=== PATIENT | female | born 1945 | race Hispanic/Latino ===

== ENCOUNTER 2017-04-28 14:44 | Inpatient (IN) | payer MEDICARE ==
[~2017-04-28] VITALS: Ht 160 cm; Wt 68.9 kg
[~2017-04-28 14:44] MED LIST: AUD IH; DICL2100G TP; FAMO-136 PO; IPRA3AMP4 IH; LACT10SO PO; LISI40TA4 PO; MELO-108 PO; PROAIR HFA PUFF
[2017-04-28] MEDS ORDERED: LEVOFLOXACIN 500 MG/D5W 100 ML 100 ML ONE (15:28)
[2017-04-28] MEDS ORDERED: METHYLPREDNISOLONE SOD SUCC 125MG/2ML VIAL ONE (15:28)
[2017-04-28 15:39] LABS: BASOPHILS % (AUTO) 1.4 % (0.0-5.0); HEMATOCRIT 38.1 % (36-48); LYMPHOCYTES % (AUTO) 34.7 % (21.0-51.0); MEAN CORPUSCULAR HEMOGLOBIN 31.9 pg (27.0-33.0); MEAN CORPUSCULAR HGB CONC 33.7 g/dL (32.0-36.0); MEAN CORPUSCULAR VOLUME 94.7 fL (79-99); MONOCYTES % (AUTO) 7.3 % (3.0-13.0); NEUTROPHILS % (AUTO) 45.6 % (40.0-77.0); PLATELET COUNT (AUTO) 227 K/uL (130-400); RED BLOOD CELL COUNT(AUTO) 4.03 MIL/uL (4.00-5.50); WHITE BLOOD COUNT (AUTO) 6.7 K/uL (4.8-10.8)
[2017-04-28 15:46] LABS: CREATININE 0.6 mg/dL (0.5-1.5); POTASSIUM 3.4 mmol/L (3.5-5.1)
[2017-04-28 15:51] LABS: ALBUMIN 3.5 g/dL (3.5-5.0); BILIRUBIN,TOTAL 0.7 mg/dL (0.2-1.0); TOTAL PROTEIN, SERUM 6.9 g/dL (6.0-8.3)
[2017-04-28] MEDS ORDERED: IPRATROPIUM/ALBUTEROL SULFATE 3 ML SOLUTION IH ONE (16:16)
[2017-04-28 22:40] VITALS: BP 159/55
[2017-04-29] MEDS ORDERED: ACETAMINOPHEN 325 MG TAB ONE (00:31)
[2017-04-29] MEDS ORDERED: DIPHENHYDRAMINE HCL 25 MG CAPSULE PO PRN (01:15)
[2017-04-29] MEDS ORDERED: ONDANSETRON HCL 4 MG/2 ML VIAL IVP PRN (01:15)
[2017-04-29] MEDS ORDERED: ZOLPIDEM TARTRATE 5 MG TAB PO PRN (01:15)
[2017-04-29] MEDS: LEVOFLOXACIN 500 MG/D5W 100 ML 100 ML IV SCH (01:15)
[2017-04-29] MEDS ORDERED: DiphenhydrAMINE HCL 50 MG/ML VIAL IV PRN (01:15)
[2017-04-29] MEDS ORDERED: IPRATROPIUM/ALBUTEROL SULFATE 3 ML SOLUTION IH ONE (01:25)
[2017-04-29] MEDS ORDERED: LACTULOSE 20 GM/30 ML UDCUP PO PRN ×2 (02:00→09:45)
[2017-04-29] MEDS: SODIUM CHLORIDE 0.9% 1000ML 1,000 ML IV SCH ×2 (02:00→09:34)
[2017-04-29] MEDS ORDERED: CLONIDINE HCL 0.1 MG TABLET PO PRN (02:00)
[2017-04-29] MEDS ORDERED: NITROGLYCERIN 0.4 MG SL TAB SL PRN (02:00)
[2017-04-29 03:40] VITALS: BP 139/86
[2017-04-29] MEDS: IPRATROPIUM/ALBUTEROL SULFATE 3 ML SOLUTION IH PRN ×3 (06:51→13:38)
[2017-04-29 07:00] VITALS: BP 155/88
[2017-04-29] MEDS ORDERED: FAMOTIDINE 20MG TAB 20 MG TAB PO SCH (09:00)
[2017-04-29] MEDS: METHYLPREDNISOLONE SOD SUCC 125MG/2ML VIAL IVP SCH (09:33)
[2017-04-29] MEDS: GUAIFENESIN-DM 200/20 MG 10 ML PO PRN ×2 (09:39→20:39)
[2017-04-29] MEDS: ACETAMINOPHEN 325 MG TAB PO PRN ×2 (09:39→20:38)
[2017-04-29] MEDS ORDERED: IPRATROPIUM/ALBUTEROL SULFATE 3 ML SOLUTION IH PRN (09:45)
[2017-04-29 11:00] VITALS: BP 135/73
[2017-04-29 15:00] VITALS: BP 149/86
[2017-04-29] MEDS: ALBUTEROL SULFATE 0.083% 2.5 MG/3 ML INH IH SCH (18:26)
[2017-04-29 19:10] VITALS: BP 153/78
[2017-04-29] MEDS ORDERED: MORPHINE SULFATE 4 MG/1ML SYG IV PRN (20:15)
[2017-04-29] MEDS: FAMOTIDINE 20MG TAB 20 MG TAB PO SCH (20:38)
[2017-04-29 23:14] VITALS: BP 128/72
[2017-04-30] MEDS: LEVOFLOXACIN 500 MG/D5W 100 ML 100 ML IV SCH (00:50)
[2017-04-30] MEDS: IPRATROPIUM/ALBUTEROL SULFATE 3 ML SOLUTION IH PRN ×3 (01:50→21:36)
[2017-04-30] MEDS: GUAIFENESIN-DM 200/20 MG 10 ML PO PRN (01:57)
[2017-04-30 03:20] VITALS: BP 139/78
[2017-04-30] MEDS: ALBUTEROL SULFATE 0.083% 2.5 MG/3 ML INH IH SCH ×2 (06:32→18:00)
[2017-04-30] MEDS: METHYLPREDNISOLONE SOD SUCC 125MG/2ML VIAL IVP SCH (07:46)
[2017-04-30] MEDS: FAMOTIDINE 20MG TAB 20 MG TAB PO SCH ×2 (07:46→22:05)
[2017-04-30] MEDS: MELOXICAM 7.5 MG TABLET PO SCH (07:47)
[2017-04-30] MEDS: LISINOPRIL 40 MG TABLET PO SCH (07:49)
[2017-04-30 08:11] VITALS: BP 144/71
[2017-04-30] MEDS: DICLOFENAC 1% TP SCH (09:00)
[2017-04-30 11:09] VITALS: BP 144/77
[2017-04-30 16:28] VITALS: BP 136/80
[2017-04-30 19:25] VITALS: BP 137/85
[2017-04-30] MEDS: ACETAMINOPHEN 325 MG TAB PO PRN (22:07)
[2017-04-30] MEDS: SODIUM CHLORIDE 0.9% 1000ML 1,000 ML IV SCH (22:37)
[2017-04-30 23:00] VITALS: BP 126/77
[2017-05-01] MEDS: LEVOFLOXACIN 500 MG/D5W 100 ML 100 ML IV SCH (01:44)
[2017-05-01 02:50] VITALS: BP 144/85
[2017-05-01] MEDS: MAG HYDROX/AL HYDROX/SIMETH ES 30 ML SUSP UDCUP PO PRN (04:20)
[2017-05-01] MEDS: IPRATROPIUM/ALBUTEROL SULFATE 3 ML SOLUTION IH PRN ×4 (05:45→22:19)
[2017-05-01] MEDS: ALBUTEROL SULFATE 0.083% 2.5 MG/3 ML INH IH SCH ×2 (06:00→18:29)
[2017-05-01 07:41] VITALS: BP 145/84
[2017-05-01] MEDS: DICLOFENAC 1% TP SCH (09:00)
[2017-05-01] MEDS: METHYLPREDNISOLONE SOD SUCC 125MG/2ML VIAL IVP SCH (09:11)
[2017-05-01] MEDS: MELOXICAM 7.5 MG TABLET PO SCH (09:12)
[2017-05-01] MEDS: FAMOTIDINE 20MG TAB 20 MG TAB PO SCH ×2 (09:12→20:54)
[2017-05-01] MEDS: LISINOPRIL 40 MG TABLET PO SCH (09:12)
[2017-05-01 11:16] VITALS: BP 145/92
[2017-05-01 15:57] VITALS: BP 134/84
[2017-05-01 19:00] VITALS: BP 149/77
[2017-05-01] MEDS: ACETAMINOPHEN 325 MG TAB PO PRN (20:54)
[2017-05-01 23:00] VITALS: BP 140/83
[2017-05-02] MEDS: LEVOFLOXACIN 500 MG/D5W 100 ML 100 ML IV SCH ×2 (00:17→23:04)
[2017-05-02] MEDS: GUAIFENESIN-DM 200/20 MG 10 ML PO PRN ×2 (00:17→20:27)
[2017-05-02] MEDS: IPRATROPIUM/ALBUTEROL SULFATE 3 ML SOLUTION IH PRN ×5 (02:10→21:23)
[2017-05-02 03:00] VITALS: BP 115/60
[2017-05-02 08:06] VITALS: BP 147/87
[2017-05-02] MEDS: METHYLPREDNISOLONE SOD SUCC 125MG/2ML VIAL IVP SCH (08:41)
[2017-05-02] MEDS: FAMOTIDINE 20MG TAB 20 MG TAB PO SCH ×2 (08:41→20:27)
[2017-05-02] MEDS: MELOXICAM 7.5 MG TABLET PO SCH (08:41)
[2017-05-02] MEDS: LISINOPRIL 40 MG TABLET PO SCH (08:42)
[2017-05-02] MEDS: DICLOFENAC 1% TP SCH (09:00)
[2017-05-02 11:34] VITALS: BP 165/83
[2017-05-02 16:08] VITALS: BP 133/85
[2017-05-02] MEDS: ALBUTEROL SULFATE 0.083% 2.5 MG/3 ML INH IH SCH (17:49)
[2017-05-02 19:00] VITALS: BP 132/76
[2017-05-02 23:00] VITALS: BP 133/74
[2017-05-02] MEDS: MAG HYDROX/AL HYDROX/SIMETH ES 30 ML SUSP UDCUP PO PRN (23:04)
[2017-05-03] MEDS: IPRATROPIUM/ALBUTEROL SULFATE 3 ML SOLUTION IH PRN ×2 (01:55→15:53)
[2017-05-03 03:00] VITALS: BP 127/74
[2017-05-03] MEDS: MAG HYDROX/AL HYDROX/SIMETH ES 30 ML SUSP UDCUP PO PRN (06:10)
[2017-05-03] MEDS: ACETAMINOPHEN 325 MG TAB PO PRN (06:11)
[2017-05-03] MEDS: ALBUTEROL SULFATE 0.083% 2.5 MG/3 ML INH IH SCH ×2 (06:29→17:28)
[2017-05-03 07:00] VITALS: BP 137/79
[2017-05-03] MEDS: DICLOFENAC 1% TP SCH (09:00)
[2017-05-03] MEDS: METHYLPREDNISOLONE SOD SUCC 125MG/2ML VIAL IVP SCH (09:01)
[2017-05-03] MEDS: MELOXICAM 7.5 MG TABLET PO SCH (09:01)
[2017-05-03] MEDS: FAMOTIDINE 20MG TAB 20 MG TAB PO SCH ×2 (09:01→19:52)
[2017-05-03] MEDS: LISINOPRIL 40 MG TABLET PO SCH (09:02)
[2017-05-03 11:00] VITALS: BP 150/76
[2017-05-03 15:36] VITALS: BP 156/94
[2017-05-03 19:00] VITALS: BP 146/85
[2017-05-03] MEDS: GUAIFENESIN-DM 200/20 MG 10 ML PO PRN ×2 (19:52→23:41)
[2017-05-03] MEDS: ALBUTEROL SULFATE 0.083% 2.5 MG/3 ML INH IH PRN (21:42)
[2017-05-03 23:00] VITALS: BP 128/65
[2017-05-03] MEDS: LEVOFLOXACIN 500 MG/D5W 100 ML 100 ML IV SCH (23:38)
[2017-05-04] MEDS: ALBUTEROL SULFATE 0.083% 2.5 MG/3 ML INH IH PRN (02:02)
[2017-05-04 03:00] VITALS: BP 145/83
[2017-05-04] MEDS: ALBUTEROL SULFATE 0.083% 2.5 MG/3 ML INH IH SCH ×2 (07:06→21:38)
[2017-05-04 08:00] VITALS: BP 169/93
[2017-05-04] MEDS: METHYLPREDNISOLONE SOD SUCC 125MG/2ML VIAL IVP SCH (08:58)
[2017-05-04] MEDS: GUAIFENESIN-DM 200/20 MG 10 ML PO PRN (08:59)
[2017-05-04] MEDS: MELOXICAM 7.5 MG TABLET PO SCH (08:59)
[2017-05-04] MEDS: LISINOPRIL 40 MG TABLET PO SCH (08:59)
[2017-05-04] MEDS: FAMOTIDINE 20MG TAB 20 MG TAB PO SCH ×2 (08:59→21:22)
[2017-05-04] MEDS: ACETAMINOPHEN 325 MG TAB PO PRN ×2 (08:59→15:44)
[2017-05-04] MEDS: MAG HYDROX/AL HYDROX/SIMETH ES 30 ML SUSP UDCUP PO PRN ×2 (08:59→21:26)
[2017-05-04] MEDS: DICLOFENAC 1% TP SCH (09:00)
[2017-05-04 12:13] VITALS: BP 125/81
[2017-05-04 16:00] VITALS: BP 148/77
[2017-05-04 19:56] VITALS: BP 133/86
[2017-05-04 23:35] VITALS: BP 144/76
[2017-05-05] MEDS: LEVOFLOXACIN 500 MG/D5W 100 ML 100 ML IV SCH (00:14)
[2017-05-05] MEDS: ACETAMINOPHEN 325 MG TAB PO PRN (04:01)
[2017-05-05] MEDS: MAG HYDROX/AL HYDROX/SIMETH ES 30 ML SUSP UDCUP PO PRN (04:11)
[2017-05-05 04:18] VITALS: BP 149/84
[2017-05-05] MEDS: ALBUTEROL SULFATE 0.083% 2.5 MG/3 ML INH IH SCH ×2 (07:05→18:00)
[2017-05-05 08:00] VITALS: BP 167/98
[2017-05-05] MEDS: LISINOPRIL 40 MG TABLET PO SCH (08:37)
[2017-05-05] MEDS: FAMOTIDINE 20MG TAB 20 MG TAB PO SCH ×2 (08:37→20:38)
[2017-05-05] MEDS: MELOXICAM 7.5 MG TABLET PO SCH (08:37)
[2017-05-05] MEDS: METHYLPREDNISOLONE SOD SUCC 125MG/2ML VIAL IVP SCH (08:37)
[2017-05-05] MEDS: DICLOFENAC 1% TP SCH (08:39)
[2017-05-05] MEDS: IPRATROPIUM/ALBUTEROL SULFATE 3 ML SOLUTION IH SCH ×4 (09:37→22:03)
[2017-05-05 11:40] VITALS: BP 167/85
[2017-05-05 15:53] VITALS: BP 152/79
[2017-05-05 19:00] VITALS: BP 130/78
[2017-05-05] MEDS: GUAIFENESIN-DM 200/20 MG 10 ML PO PRN (20:38)
[2017-05-05 23:00] VITALS: BP 132/75
[2017-05-06] MEDS: LEVOFLOXACIN 500 MG/D5W 100 ML 100 ML IV SCH (01:08)
[2017-05-06] MEDS: IPRATROPIUM/ALBUTEROL SULFATE 3 ML SOLUTION IH SCH ×2 (01:46→07:01)
[2017-05-06 03:00] VITALS: BP 144/86
[2017-05-06] MEDS: ALBUTEROL SULFATE 0.083% 2.5 MG/3 ML INH IH SCH (06:00)
[2017-05-06 07:00] VITALS: BP 164/90
[2017-05-06] MEDS: FAMOTIDINE 20MG TAB 20 MG TAB PO SCH (08:15)
[2017-05-06] MEDS: MELOXICAM 7.5 MG TABLET PO SCH (08:15)
[2017-05-06] MEDS: LISINOPRIL 40 MG TABLET PO SCH (08:16)
[2017-05-06] MEDS: GUAIFENESIN-DM 200/20 MG 10 ML PO PRN (08:18)
[2017-05-06] MEDS: MAG HYDROX/AL HYDROX/SIMETH ES 30 ML SUSP UDCUP PO PRN (08:19)
[2017-05-06] MEDS: DICLOFENAC 1% TP SCH (08:21)
== END 2017-05-06 10:35 | disposition home or self-care (01) | DRG 191 ==
LOC: EDH 14:44 → EDHIP 14:45 → UNDOADMIN 15:21 → 3CH 21:06 → EDHIP 21:06
PROVIDERS: ADMIT Family Medicine; ATTEND Family Medicine
DX: J44.1 Chronic obstructive pulmonary disease with (acute) exacerbation (principal); I50.32 Chronic diastolic (congestive) heart failure; I11.0 Hypertensive heart disease with heart failure; E11.9 Type 2 diabetes mellitus without complications; J45.901 Unspecified asthma with (acute) exacerbation; I25.10 Atherosclerotic heart disease of native coronary artery without angina pectoris; E78.5 Hyperlipidemia, unspecified; Z96.651 Presence of right artificial knee joint
CPT/HCPCS: 36415; 71020; 80053; 85025; 94640; 94664; J1956; J2930; J7030

== ENCOUNTER 2017-06-28 18:48 | Inpatient (IN) | payer MEDICARE ==
[~2017-06-28] VITALS: Ht 152.4 cm; Wt 71.8 kg
[2017-06-28] MEDS: SODIUM CHLORIDE 0.9% 10 ML VIAL IVP SCH ×2 (08:00→22:00)
[2017-06-28 19:33] LABS: BASOPHILS % (AUTO) 0.8 % (0.0-5.0); EOSINOPHILS % (AUTO) 14.1 % (0.0-8.0); HEMATOCRIT 37.7 % (36-48); LYMPHOCYTES % (AUTO) 32.5 % (21.0-51.0); MEAN CORPUSCULAR HEMOGLOBIN 32.4 pg (27.0-33.0); MEAN CORPUSCULAR HGB CONC 34.3 g/dL (32.0-36.0); MEAN CORPUSCULAR VOLUME 94.5 fL (79-99); MONOCYTES % (AUTO) 8.8 % (3.0-13.0); NEUTROPHILS % (AUTO) 43.8 % (40.0-77.0); PLATELET COUNT (AUTO) 271 K/uL (130-400); RED BLOOD CELL COUNT(AUTO) 3.99 MIL/uL (4.00-5.50); RED CELL DISTRIBUTION WIDTH 13.2 % (11.0-15.5); WHITE BLOOD COUNT (AUTO) 9.2 K/uL (4.8-10.8)
[2017-06-28 19:37] LABS: CREATININE 0.9 mg/dL (0.5-1.5)
[2017-06-28 19:42] LABS: ALBUMIN 3.2 g/dL (3.5-5.0); BILIRUBIN,TOTAL 0.2 mg/dL (0.2-1.0); TOTAL PROTEIN, SERUM 6.8 g/dL (6.0-8.3)
[2017-06-28 19:43] LABS: B-TYPE NATRIURETIC PEPTIDE 44 pg/mL (0-100)
[2017-06-28 21:30] VITALS: BP 153/85
[2017-06-28] MEDS ORDERED: PANT40TA25 PO (22:47)
[2017-06-28] MEDS ORDERED: MELO-106 PO (22:47)
[2017-06-28] MEDS ORDERED: NITR100C9 PO (22:47)
[2017-06-28] MEDS ORDERED: POTASSIUM CHLORIDE 10% ELIXIR 20 MEQ/15 ML UDCUP PO PRN (23:15)
[2017-06-28] MEDS ORDERED: POTASSIUM CHLORIDE 20MEQ/100ML 100 ML IV PRN (23:15)
[2017-06-28] MEDS ORDERED: LIDOCAINE HCL-MPF 1% 2ML VIAL IJ PRN (23:15)
[2017-06-28] MEDS ORDERED: ACETAMINOPHEN 325 MG TAB PO PRN ×2 (23:15)
[2017-06-28] MEDS ORDERED: ZOLPIDEM TARTRATE 5 MG TAB PO PRN (23:15)
[2017-06-28] MEDS ORDERED: NITROGLYCERIN 0.4 MG SL TAB SL PRN (23:15)
[2017-06-28] MEDS ORDERED: CLONIDINE HCL 0.1 MG TABLET PO PRN (23:15)
[2017-06-28] MEDS ORDERED: SODIUM CHLORIDE 0.9% 10 ML VIAL IVP PRN (23:15)
[2017-06-28] MEDS ORDERED: MAG HYDROX/AL HYDROX/SIMETH ES 30 ML SUSP UDCUP PO PRN (23:15)
[2017-06-28] MEDS ORDERED: ONDANSETRON HCL 4 MG/2 ML VIAL IVP PRN (23:15)
[2017-06-28] MEDS ORDERED: DIPHENHYDRAMINE HCL 25 MG CAPSULE PO PRN (23:15)
[2017-06-28] MEDS ORDERED: DiphenhydrAMINE HCL 50 MG/ML VIAL IVP PRN (23:15)
[2017-06-28] MEDS ORDERED: LACTULOSE 20 GM/30 ML UDCUP PO PRN (23:15)
[2017-06-28] MEDS ORDERED: POTASSIUM CHLORIDE 20 MEQ ERTAB PO PRN (23:15)
[2017-06-28] MEDS ORDERED: AZITHROMYCIN 500 MG in SODIUM CHLORIDE 0.9% 250 ML IV SCH (23:15)
[2017-06-28 23:40] VITALS: BP 139/85
[2017-06-29] MEDS ORDERED: IPRATROPIUM/ALBUTEROL SULFATE 3 ML SOLUTION IH ONE ×2 (02:04→06:08)
[2017-06-29] MEDS: CEFTRIAXONE SODIUM 1 GM IVP SCH ×2 (03:24→12:08)
[2017-06-29 03:35] VITALS: BP 126/72
[2017-06-29] MEDS: SODIUM CHLORIDE 0.9% 10 ML VIAL IVP SCH (06:00)
[2017-06-29 08:00] VITALS: BP 140/78
[2017-06-29] MEDS: FAMOTIDINE 20MG TAB 20 MG TAB PO SCH ×4 (08:36→20:42)
[2017-06-29] MEDS: LISINOPRIL 40 MG TABLET PO SCH (08:37)
[2017-06-29] MEDS: GUAIFENESIN-DM 200/20 MG 10 ML PO PRN (08:37)
[2017-06-29] MEDS: MELOXICAM 7.5 MG TABLET PO SCH (08:37)
[2017-06-29] MEDS: PANTOPRAZOLE SODIUM 40 MG TABLET.DR PO SCH (08:37)
[2017-06-29] MEDS: VOLTAREN 1% TP SCH (09:00)
[2017-06-29] MEDS: IPRATROPIUM/ALBUTEROL SULFATE 3 ML SOLUTION IH SCH ×4 (10:38→22:24)
[2017-06-29 11:00] VITALS: BP 155/84
[2017-06-29 12:06] LABS: APPEARANCE,URINE Clear (CLEAR); BILIRUBIN,URINE Negative (NEGATIVE); COLOR,URINE Yellow (YELLOW); GLUCOSE, URINE (UA) 500 mg/dL (NEGATIVE); KETONES,URINE Negative (NEGATIVE); LEUKOCYTE ESTERASE ,URINE Negative (NEGATIVE); NITRATE,URINE Negative (NEGATIVE); OCCULT BLOOD,URINE Negative (NEGATIVE); PH,URINE 5.5 (5.0-8.0); PROTEIN,URINE Negative (NEGATIVE); UROBILINOGEN,URINE 0.2 mg/dL (0.2-1.0)
[2017-06-29 12:29] LABS: BACTERIA,URINE Rare /HPF (None Seen); RBC,URINE 0-1 /HPF (0-1); SQUAMOUS EPITHELIAL CELL,UR Rare /LPF (0-2); WBC,URINE 0-1 /HPF (0-1)
[2017-06-29 16:00] VITALS: BP 173/84
[2017-06-29] MEDS ORDERED: MORPHINE SULFATE 4 MG/1ML SYG IV PRN (17:45)
[2017-06-29 19:40] VITALS: BP 125/83
[2017-06-29] MEDS: AZITHROMYCIN 500MG+NS 250ML 250 ML IV SCH (23:08)
[2017-06-29 23:30] VITALS: BP 120/66
[2017-06-30] MEDS: CEFTRIAXONE SODIUM 1 GM IVP SCH ×2 (00:17→13:03)
[2017-06-30] MEDS: IPRATROPIUM/ALBUTEROL SULFATE 3 ML SOLUTION IH SCH ×6 (01:52→22:24)
[2017-06-30] MEDS: GUAIFENESIN-DM 200/20 MG 10 ML PO PRN ×2 (03:12→22:04)
[2017-06-30 03:30] VITALS: BP 109/69
[2017-06-30 07:30] VITALS: BP 124/70
[2017-06-30] MEDS ORDERED: DOCUSATE SODIUM 100 MG CAP PO PRN (08:30)
[2017-06-30] MEDS: VOLTAREN 1% TP SCH (09:00)
[2017-06-30] MEDS: FAMOTIDINE 20MG TAB 20 MG TAB PO SCH ×4 (09:00→22:04)
[2017-06-30] MEDS: PANTOPRAZOLE SODIUM 40 MG TABLET.DR PO SCH (09:11)
[2017-06-30] MEDS: MELOXICAM 7.5 MG TABLET PO SCH (09:11)
[2017-06-30] MEDS: LISINOPRIL 40 MG TABLET PO SCH (09:12)
[2017-06-30 11:00] VITALS: BP 128/76
[2017-06-30] MEDS: SODIUM CHLORIDE 0.9% 10 ML VIAL IVP SCH (13:03)
[2017-06-30 16:00] VITALS: BP 155/85
[2017-06-30 19:00] VITALS: BP 135/72
[2017-06-30] MEDS: AZITHROMYCIN 500MG+NS 250ML 250 ML IV SCH (22:05)
[2017-06-30 23:00] VITALS: BP 139/88
[2017-07-01] MEDS: CEFTRIAXONE SODIUM 1 GM IVP SCH ×3 (01:44→23:44)
[2017-07-01] MEDS: IPRATROPIUM/ALBUTEROL SULFATE 3 ML SOLUTION IH SCH ×6 (02:29→22:05)
[2017-07-01 03:00] VITALS: BP 120/84
[2017-07-01 04:02] LABS: CREATININE 0.7 mg/dL (0.5-1.5)
[2017-07-01 04:04] LABS: HEMATOCRIT 33.7 % (36-48); MEAN CORPUSCULAR HEMOGLOBIN 32.9 pg (27.0-33.0); MEAN CORPUSCULAR HGB CONC 34.8 g/dL (32.0-36.0); MEAN CORPUSCULAR VOLUME 94.6 fL (79-99); PLATELET COUNT (AUTO) 245 K/uL (130-400); RED BLOOD CELL COUNT(AUTO) 3.56 MIL/uL (4.00-5.50); RED CELL DISTRIBUTION WIDTH 12.9 % (11.0-15.5); WHITE BLOOD COUNT (AUTO) 8.5 K/uL (4.8-10.8)
[2017-07-01 08:00] VITALS: BP 136/87
[2017-07-01] MEDS: FAMOTIDINE 20MG TAB 20 MG TAB PO SCH ×3 (09:00→20:25)
[2017-07-01] MEDS: VOLTAREN 1% TP SCH (09:00)
[2017-07-01] MEDS: PANTOPRAZOLE SODIUM 40 MG TABLET.DR PO SCH (09:38)
[2017-07-01] MEDS: MELOXICAM 7.5 MG TABLET PO SCH (09:39)
[2017-07-01] MEDS: LISINOPRIL 40 MG TABLET PO SCH (09:39)
[2017-07-01 12:00] VITALS: BP 147/89
[2017-07-01] MEDS: SODIUM CHLORIDE 0.9% 10 ML VIAL IVP SCH ×2 (14:11→20:27)
[2017-07-01 16:00] VITALS: BP 150/77
[2017-07-01 19:35] VITALS: BP 130/86
[2017-07-01 23:35] VITALS: BP 121/73
[2017-07-01] MEDS: AZITHROMYCIN 500MG+NS 250ML 250 ML IV SCH (23:44)
[2017-07-02] MEDS: IPRATROPIUM/ALBUTEROL SULFATE 3 ML SOLUTION IH SCH ×4 (01:35→14:09)
[2017-07-02] MEDS: GUAIFENESIN-DM 200/20 MG 10 ML PO PRN (02:41)
[2017-07-02 03:50] VITALS: BP 133/81
[2017-07-02] MEDS: SODIUM CHLORIDE 0.9% 10 ML VIAL IVP SCH ×2 (06:00→13:16)
[2017-07-02 08:00] VITALS: BP 142/89
[2017-07-02] MEDS: VOLTAREN 1% TP SCH (09:00)
[2017-07-02] MEDS: MELOXICAM 7.5 MG TABLET PO SCH (09:13)
[2017-07-02] MEDS: PANTOPRAZOLE SODIUM 40 MG TABLET.DR PO SCH (09:13)
[2017-07-02] MEDS: FAMOTIDINE 20MG TAB 20 MG TAB PO SCH (09:13)
[2017-07-02] MEDS: LISINOPRIL 40 MG TABLET PO SCH (09:13)
[2017-07-02 12:05] VITALS: BP 156/84
[2017-07-02] MEDS: CEFTRIAXONE SODIUM 1 GM IVP SCH (13:16)
== END 2017-07-02 15:32 | disposition home or self-care (01) | DRG 192 ==
LOC: EDH 18:48 → EDHIP 19:10 → 3BH 20:55
PROVIDERS: ADMIT Family Medicine; ATTEND Family Medicine
DX: J44.1 Chronic obstructive pulmonary disease with (acute) exacerbation (principal); E78.5 Hyperlipidemia, unspecified; I10 Essential (primary) hypertension; M19.90 Unspecified osteoarthritis, unspecified site; Z96.652 Presence of left artificial knee joint
CPT/HCPCS: 36415; 71046; 80048; 80053; 81001; 83880; 85025; 85027; 87804; 94640; 94664; 94667; 94668; A4218; J0456; J0696; J2270; J7030

== ENCOUNTER 2018-01-24 18:31 | Inpatient (IN) | payer MEDICARE ==
[~2018-01-24] VITALS: Ht 160 cm; Wt 73.0 kg
[~2018-01-24 18:31] MED LIST changes: -IPRA3AMP4 IH; -LACT10SO PO; +MELO-106 PO; -MELO-108 PO; +NITR100C9 PO; +PANT40TA25 PO; +PROAIR HFA IH; -PROAIR HFA PUFF
[2018-01-24] MEDS ORDERED: CLONIDINE HCL 0.1 MG TABLET PO PRN (19:45)
[2018-01-24] MEDS ORDERED: ACETAMINOPHEN 325 MG TAB PO PRN (19:45)
[2018-01-24] MEDS ORDERED: DIPHENHYDRAMINE HCL 25 MG CAPSULE PO PRN (19:45)
[2018-01-24] MEDS ORDERED: LIDOCAINE HCL-MPF 1% 2ML VIAL IJ PRN (19:45)
[2018-01-24] MEDS ORDERED: MAG HYDROX/AL HYDROX/SIMETH ES 30 ML SUSP UDCUP PO PRN (19:45)
[2018-01-24] MEDS ORDERED: POTASSIUM CHLORIDE 20MEQ/100ML 100 ML IV PRN (19:45)
[2018-01-24] MEDS ORDERED: GLUCAGON 1MG KIT 1 MG ML IM PRN (19:45)
[2018-01-24] MEDS ORDERED: NITROGLYCERIN 0.4 MG SL TAB SL PRN (19:45)
[2018-01-24] MEDS ORDERED: ZOLPIDEM TARTRATE 5 MG TAB PO PRN (19:45)
[2018-01-24] MEDS ORDERED: ONDANSETRON HCL 4 MG/2 ML VIAL IVP PRN (19:45)
[2018-01-24] MEDS ORDERED: DEXTROSE 50%-WATER 50 ML DISP.SYRIN IV PRN (19:45)
[2018-01-24] MEDS ORDERED: DiphenhydrAMINE HCL 50 MG/ML VIAL IVP PRN (19:45)
[2018-01-24] MEDS ORDERED: LACTULOSE 20 GM/30 ML UDCUP PO PRN (19:45)
[2018-01-24] MEDS ORDERED: POTASSIUM CHLORIDE 10% ELIXIR 20 MEQ/15 ML UDCUP PO PRN (19:45)
[2018-01-24 19:56] VITALS: BP 184/97
[2018-01-24 20:45] VITALS: BP 167/89
[2018-01-24] MEDS: INSULIN R PO SSI SQ SCH (21:00)
[2018-01-24] MEDS: FAMOTIDINE 20MG TAB 20 MG TAB PO SCH (21:03)
[2018-01-24] MEDS: IPRATROPIUM/ALBUTEROL SULFATE 3 ML SOLUTION IH SCH ×2 (21:05→22:00)
[2018-01-24] MEDS: METHYLPREDNISOLONE SOD SUCC 125MG/2ML VIAL IVP SCH (21:05)
[2018-01-24 21:21] LABS: HEMATOCRIT 39.8 % (36-48); MEAN CORPUSCULAR HEMOGLOBIN 30.7 pg (27.0-33.0); MEAN CORPUSCULAR HGB CONC 32.7 g/dL (32.0-36.0); MEAN CORPUSCULAR VOLUME 93.9 fL (79-99); PLATELET COUNT (AUTO) 227 K/uL (130-400); RED BLOOD CELL COUNT(AUTO) 4.24 MIL/uL (4.00-5.50); RED CELL DISTRIBUTION WIDTH 15.2 % (11.0-15.5); WHITE BLOOD COUNT (AUTO) 10.7 K/uL (4.8-10.8)
[2018-01-24 21:30] LABS: CREATININE 0.7 mg/dL (0.5-1.5); POTASSIUM 3.6 mmol/L (3.5-5.1)
[2018-01-24 21:37] LABS: ALBUMIN 3.5 g/dL (3.5-5.0); BILIRUBIN,TOTAL 0.4 mg/dL (0.2-1.0); TOTAL PROTEIN, SERUM 7.2 g/dL (6.0-8.3)
[2018-01-24] MEDS: LEVOFLOXACIN 500 MG/D5W 100 ML 100 ML IV SCH (22:42)
[2018-01-24] MEDS: SODIUM CHLORIDE 0.9% 1000ML 1,000 ML IV SCH (22:43)
[2018-01-24 23:28] VITALS: BP 111/66
[2018-01-25] MEDS: IPRATROPIUM/ALBUTEROL SULFATE 3 ML SOLUTION IH SCH ×6 (02:11→21:22)
[2018-01-25 04:24] VITALS: BP 106/53
[2018-01-25] MEDS ORDERED: SODIUM CHLORIDE 3% FOR INHALATION 4 ML/AMP VIAL.NEB IH ONE ×3 (06:18→14:15)
[2018-01-25] MEDS: SODIUM CHLORIDE 0.9% 1000ML 1,000 ML IV SCH (06:44)
[2018-01-25] MEDS: INSULIN R PO SSI SQ SCH ×4 (06:47→20:22)
[2018-01-25 08:00] VITALS: BP 125/60
[2018-01-25] MEDS ORDERED: DOCUSATE SODIUM 100 MG CAP PO PRN (08:15)
[2018-01-25] MEDS ORDERED: ALBUTEROL SULFATE 0.083% 2.5 MG/3 ML INH IH PRN (08:15)
[2018-01-25] MEDS: LISINOPRIL 40 MG TABLET PO SCH (09:10)
[2018-01-25] MEDS: FAMOTIDINE 20MG TAB 20 MG TAB PO SCH ×2 (09:10→20:12)
[2018-01-25] MEDS: PANTOPRAZOLE SODIUM 40 MG TABLET.DR PO SCH (09:10)
[2018-01-25] MEDS: METHYLPREDNISOLONE SOD SUCC 125MG/2ML VIAL IVP SCH ×2 (09:10→20:12)
[2018-01-25] MEDS: MELOXICAM 7.5 MG TABLET PO SCH (09:10)
[2018-01-25] MEDS: GUAIFENESIN-DM 200/20 MG 10 ML PO PRN (09:13)
[2018-01-25] MEDS: ACETAMINOPHEN 325 MG TAB PO PRN ×3 (09:19→20:23)
[2018-01-25] MEDS: POTASSIUM CHLORIDE 20 MEQ ERTAB PO PRN ×2 (10:35→12:37)
[2018-01-25 11:27] VITALS: BP 141/80
[2018-01-25 16:00] VITALS: BP 125/63
[2018-01-25] MEDS ORDERED: ALBUTEROL SULFATE 0.083% 2.5 MG/3 ML INH IH SCH (18:00)
[2018-01-25 19:16] VITALS: BP 139/85
[2018-01-25] MEDS: LEVOFLOXACIN 500 MG/D5W 100 ML 100 ML IV SCH (20:11)
[2018-01-25 23:20] VITALS: BP 122/80
[2018-01-26] MEDS: IPRATROPIUM/ALBUTEROL SULFATE 3 ML SOLUTION IH SCH ×6 (01:04→21:47)
[2018-01-26] MEDS: ACETAMINOPHEN-CODEINE 300/30MG TAB PO PRN ×3 (01:49→14:37)
[2018-01-26 03:48] VITALS: BP 124/68
[2018-01-26 04:53] LABS: HEMATOCRIT 35.5 % (36-48); MEAN CORPUSCULAR HEMOGLOBIN 30.3 pg (27.0-33.0); MEAN CORPUSCULAR HGB CONC 32.2 g/dL (32.0-36.0); MEAN CORPUSCULAR VOLUME 93.8 fL (79-99); PLATELET COUNT (AUTO) 218 K/uL (130-400); RED BLOOD CELL COUNT(AUTO) 3.78 MIL/uL (4.00-5.50); RED CELL DISTRIBUTION WIDTH 15.5 % (11.0-15.5); WHITE BLOOD COUNT (AUTO) 14.8 K/uL (4.8-10.8)
[2018-01-26 05:06] LABS: CREATININE 0.8 mg/dL (0.5-1.5); POTASSIUM 4.1 mmol/L (3.5-5.1)
[2018-01-26 07:31] VITALS: BP 157/87
[2018-01-26] MEDS: MELOXICAM 7.5 MG TABLET PO SCH (08:46)
[2018-01-26] MEDS: FAMOTIDINE 20MG TAB 20 MG TAB PO SCH ×2 (08:46→20:14)
[2018-01-26] MEDS: PANTOPRAZOLE SODIUM 40 MG TABLET.DR PO SCH (08:47)
[2018-01-26] MEDS: LISINOPRIL 40 MG TABLET PO SCH (08:47)
[2018-01-26] MEDS: METHYLPREDNISOLONE SOD SUCC 125MG/2ML VIAL IVP SCH ×2 (08:47→20:14)
[2018-01-26 11:14] VITALS: BP 131/64
[2018-01-26] MEDS: GUAIFENESIN-DM 200/20 MG 10 ML PO PRN (14:37)
[2018-01-26 16:00] VITALS: BP 128/67
[2018-01-26] MEDS: LEVOFLOXACIN 500 MG/D5W 100 ML 100 ML IV SCH (20:14)
[2018-01-26 20:23] VITALS: BP 138/75
[2018-01-26 23:50] VITALS: BP 121/67
[2018-01-27] MEDS: IPRATROPIUM/ALBUTEROL SULFATE 3 ML SOLUTION IH SCH ×6 (02:05→22:20)
[2018-01-27 04:56] VITALS: BP 105/60
[2018-01-27 07:50] VITALS: BP 146/91
[2018-01-27] MEDS: FAMOTIDINE 20MG TAB 20 MG TAB PO SCH ×2 (08:33→20:21)
[2018-01-27] MEDS: PANTOPRAZOLE SODIUM 40 MG TABLET.DR PO SCH (08:33)
[2018-01-27] MEDS: LISINOPRIL 40 MG TABLET PO SCH (08:33)
[2018-01-27] MEDS: MELOXICAM 7.5 MG TABLET PO SCH (08:33)
[2018-01-27] MEDS: METHYLPREDNISOLONE SOD SUCC 125MG/2ML VIAL IVP SCH ×2 (08:34→20:21)
[2018-01-27] MEDS: ACETAMINOPHEN-CODEINE 300/30MG TAB PO PRN ×2 (08:34→18:38)
[2018-01-27 13:11] VITALS: BP 159/88
[2018-01-27 16:33] VITALS: BP 139/79
[2018-01-27 19:46] VITALS: BP 159/76
[2018-01-27] MEDS: LEVOFLOXACIN 500 MG/D5W 100 ML 100 ML IV SCH (20:21)
[2018-01-28 00:20] VITALS: BP 121/68
[2018-01-28] MEDS: IPRATROPIUM/ALBUTEROL SULFATE 3 ML SOLUTION IH SCH ×4 (02:18→13:28)
[2018-01-28 03:23] VITALS: BP 121/73
[2018-01-28] MEDS: ACETAMINOPHEN 325 MG TAB PO PRN (07:18)
[2018-01-28] MEDS: METHYLPREDNISOLONE SOD SUCC 125MG/2ML VIAL IVP SCH (07:50)
[2018-01-28 08:09] VITALS: BP 159/82
[2018-01-28] MEDS: PANTOPRAZOLE SODIUM 40 MG TABLET.DR PO SCH (09:03)
[2018-01-28] MEDS: LISINOPRIL 40 MG TABLET PO SCH (09:03)
[2018-01-28] MEDS: MELOXICAM 7.5 MG TABLET PO SCH (09:03)
[2018-01-28] MEDS: FAMOTIDINE 20MG TAB 20 MG TAB PO SCH (09:03)
[2018-01-28 12:07] VITALS: BP 155/94
[2018-01-28] MEDS: ACETAMINOPHEN-CODEINE 300/30MG TAB PO PRN (12:57)
== END 2018-01-28 15:07 | disposition home or self-care (01) | DRG 190 ==
LOC: EDH 18:31 → 4AH 19:15 → 4BH 01-27 11:33
PROVIDERS: ADMIT Family Medicine; ATTEND Family Medicine
PROC: 3E0234Z Introduction of Serum, Toxoid and Vaccine into Muscle, Percutaneous Approach (ICD-10-PCS; principal; 2018-01-28)
DX: J44.1 Chronic obstructive pulmonary disease with (acute) exacerbation (principal); J18.9 Pneumonia, unspecified organism; E78.5 Hyperlipidemia, unspecified; I10 Essential (primary) hypertension; M19.90 Unspecified osteoarthritis, unspecified site; T38.0X5A Adverse effect of glucocorticoids and synthetic analogues, initial encounter; J44.0 Chronic obstructive pulmonary disease with (acute) lower respiratory infection; Z96.653 Presence of artificial knee joint, bilateral; Z79.899 Other long term (current) drug therapy; Z23 Encounter for immunization; Y92.89 Other specified places as the place of occurrence of the external cause
CPT/HCPCS: 36415; 71046; 80048; 80053; 82948; 85027; 87040; 94640; 94664; J1815; J1956; J2930; J7030; Q2038

== ENCOUNTER 2018-03-28 17:24 | Inpatient (IN) | payer MEDICARE ==
[~2018-03-28] VITALS: Ht 160 cm; Wt 74.6 kg
[~2018-03-28 17:24] MED LIST changes: -AUD IH; -DICL2100G TP; +IPRA4AER IH; -MELO-106 PO; +MELO-108 PO; -NITR100C9 PO
[2018-03-28] MEDS ORDERED: SODIUM CHLORIDE 0.9% 1000ML 1,000 ML IV ONE (17:45)
[2018-03-28] MEDS ORDERED: METHYLPREDNISOLONE SOD SUCC 125MG/2ML VIAL ONE (17:46)
[2018-03-28] MEDS ORDERED: CEFTRIAXONE SODIUM 1 GM ONE (17:46)
[2018-03-28] MEDS ORDERED: AZITHROMYCIN 500MG+NS 250ML 250 ML IV ONE (17:46)
[2018-03-28 18:22] LABS: EOSINOPHILS % (AUTO) 3.1 % (0.0-8.0); HEMATOCRIT 37.7 % (36-48); LYMPHOCYTES % (AUTO) 13.2 % (21.0-51.0); MEAN CORPUSCULAR HEMOGLOBIN 30.6 pg (27.0-33.0); MEAN CORPUSCULAR HGB CONC 32.6 g/dL (32.0-36.0); MEAN CORPUSCULAR VOLUME 93.7 fL (79-99); MONOCYTES % (AUTO) 6.7 % (3.0-13.0); PLATELET COUNT (AUTO) 193 K/uL (130-400); RED BLOOD CELL COUNT(AUTO) 4.03 MIL/uL (4.00-5.50); RED CELL DISTRIBUTION WIDTH 14.2 % (11.0-15.5); WHITE BLOOD COUNT (AUTO) 10.2 K/uL (4.8-10.8)
[2018-03-28 18:29] LABS: CREATININE 0.8 mg/dL (0.5-1.5); POTASSIUM 3.6 mmol/L (3.5-5.1)
[2018-03-28 18:34] LABS: ALBUMIN 3.4 g/dL (3.5-5.0); BILIRUBIN,TOTAL 0.6 mg/dL (0.2-1.0); TOTAL PROTEIN, SERUM 6.8 g/dL (6.0-8.3)
[2018-03-28] MEDS ORDERED: ACETAMINOPHEN 325 MG TAB PO PRN (21:00)
[2018-03-28] MEDS ORDERED: NITROGLYCERIN 0.4 MG SL TAB SL PRN (21:00)
[2018-03-28] MEDS ORDERED: DIPHENHYDRAMINE HCL 25 MG CAPSULE PO PRN (21:00)
[2018-03-28] MEDS ORDERED: LACTULOSE 20 GM/30 ML UDCUP PO PRN (21:00)
[2018-03-28] MEDS ORDERED: ZOLPIDEM TARTRATE 5 MG TAB PO PRN (21:00)
[2018-03-28] MEDS ORDERED: CLONIDINE HCL 0.1 MG TABLET PO PRN (21:00)
[2018-03-28] MEDS ORDERED: POTASSIUM CHLORIDE 10% ELIXIR 20 MEQ/15 ML UDCUP PO PRN (21:00)
[2018-03-28] MEDS ORDERED: DiphenhydrAMINE HCL 50 MG/ML VIAL IVP PRN (21:00)
[2018-03-28] MEDS ORDERED: LIDOCAINE HCL-MPF 1% 2ML VIAL IJ PRN (21:00)
[2018-03-28] MEDS ORDERED: MAG HYDROX/AL HYDROX/SIMETH ES 30 ML SUSP UDCUP PO PRN (21:00)
[2018-03-28] MEDS ORDERED: ONDANSETRON HCL 4 MG/2 ML VIAL IVP PRN (21:00)
[2018-03-28] MEDS ORDERED: POTASSIUM CHLORIDE 20MEQ/100ML 100 ML IV PRN (21:00)
[2018-03-28 21:22] VITALS: BP 148/92
[2018-03-28] MEDS ORDERED: ACETAMINOPHEN-CODEINE 300/30MG TAB PO PRN (21:30)
[2018-03-28] MEDS: SODIUM CHLORIDE 0.9% 1000ML 1,000 ML IV SCH (21:59)
[2018-03-28] MEDS: POTASSIUM CHLORIDE 20 MEQ ERTAB PO PRN (22:00)
[2018-03-28] MEDS: IPRATROPIUM/ALBUTEROL SULFATE 3 ML SOLUTION IH SCH (22:00)
[2018-03-28] MEDS: FAMOTIDINE 20MG TAB 20 MG TAB PO SCH (22:00)
[2018-03-28] MEDS: GUAIFENESIN-DM 200/20 MG 10 ML PO PRN (22:01)
[2018-03-28 23:00] VITALS: BP 140/70
[2018-03-29 03:00] VITALS: BP 119/54
[2018-03-29] MEDS: IPRATROPIUM/ALBUTEROL SULFATE 3 ML SOLUTION IH SCH ×6 (03:39→21:14)
[2018-03-29] MEDS: METHYLPREDNISOLONE SOD SUCC 125MG/2ML VIAL IVP SCH ×2 (05:01→18:41)
[2018-03-29 05:07] LABS: HEMATOCRIT 34.2 % (36-48); MEAN CORPUSCULAR HEMOGLOBIN 31.6 pg (27.0-33.0); MEAN CORPUSCULAR HGB CONC 33.4 g/dL (32.0-36.0); MEAN CORPUSCULAR VOLUME 94.6 fL (79-99); PLATELET COUNT (AUTO) 209 K/uL (130-400); RED BLOOD CELL COUNT(AUTO) 3.62 MIL/uL (4.00-5.50); RED CELL DISTRIBUTION WIDTH 14.3 % (11.0-15.5); WHITE BLOOD COUNT (AUTO) 5.6 K/uL (4.8-10.8)
[2018-03-29 05:29] LABS: ALBUMIN 2.8 g/dL (3.5-5.0); BILIRUBIN,TOTAL 0.4 mg/dL (0.2-1.0); CREATININE 0.8 mg/dL (0.5-1.5); POTASSIUM 4.2 mmol/L (3.5-5.1); TOTAL PROTEIN, SERUM 6.1 g/dL (6.0-8.3)
[2018-03-29 08:12] VITALS: BP 134/80
[2018-03-29] MEDS ORDERED: ARTIFICAL TEARS SOL 15 ML OD PRN (08:45)
[2018-03-29] MEDS: FAMOTIDINE 20MG TAB 20 MG TAB PO SCH ×4 (09:00→21:00)
[2018-03-29] MEDS ORDERED: DOCUSATE SODIUM 100 MG CAP PO PRN (09:00)
[2018-03-29] MEDS ORDERED: IPRATROPIUM/ALBUTEROL SULFATE 3 ML SOLUTION IH PRN (09:00)
[2018-03-29] MEDS ORDERED: ALBUTEROL SULFATE 0.083% 2.5 MG/3 ML INH IH PRN (09:00)
[2018-03-29] MEDS: LISINOPRIL 40 MG TABLET PO SCH (10:29)
[2018-03-29] MEDS: MELOXICAM 7.5 MG TABLET PO SCH (10:29)
[2018-03-29] MEDS: PANTOPRAZOLE SODIUM 40 MG TABLET.DR PO SCH (10:32)
[2018-03-29] MEDS: ACETAMINOPHEN 325 MG TAB PO PRN (11:34)
[2018-03-29 12:14] VITALS: BP 147/74
[2018-03-29] MEDS: SODIUM CHLORIDE 0.9% 1000ML 1,000 ML IV SCH (12:41)
[2018-03-29 16:34] VITALS: BP 133/66
[2018-03-29] MEDS: AZITHROMYCIN 500MG+NS 250ML 250 ML IV SCH (18:35)
[2018-03-29] MEDS: CEFTRIAXONE SODIUM 1 GM IVP SCH (18:47)
[2018-03-29 19:25] VITALS: BP 137/82
[2018-03-30 00:01] VITALS: BP 118/65
[2018-03-30] MEDS: SODIUM CHLORIDE 0.9% 1000ML 1,000 ML IV SCH ×2 (00:15→02:11)
[2018-03-30] MEDS: IPRATROPIUM/ALBUTEROL SULFATE 3 ML SOLUTION IH SCH ×6 (01:03→21:30)
[2018-03-30 04:05] VITALS: BP 133/70
[2018-03-30 04:46] LABS: HEMATOCRIT 33.1 % (36-48); MEAN CORPUSCULAR HEMOGLOBIN 30.8 pg (27.0-33.0); MEAN CORPUSCULAR HGB CONC 32.8 g/dL (32.0-36.0); MEAN CORPUSCULAR VOLUME 93.9 fL (79-99); PLATELET COUNT (AUTO) 190 K/uL (130-400); RED BLOOD CELL COUNT(AUTO) 3.53 MIL/uL (4.00-5.50); RED CELL DISTRIBUTION WIDTH 14.3 % (11.0-15.5); WHITE BLOOD COUNT (AUTO) 9.8 K/uL (4.8-10.8)
[2018-03-30 04:47] LABS: CREATININE 0.8 mg/dL (0.5-1.5); POTASSIUM 3.8 mmol/L (3.5-5.1)
[2018-03-30] MEDS: METHYLPREDNISOLONE SOD SUCC 125MG/2ML VIAL IVP SCH ×2 (05:28→18:39)
[2018-03-30] MEDS: PANTOPRAZOLE SODIUM 40 MG TABLET.DR PO SCH (05:28)
[2018-03-30 08:00] VITALS: BP 135/77
[2018-03-30] MEDS: FAMOTIDINE 20MG TAB 20 MG TAB PO SCH ×4 (09:00→21:00)
[2018-03-30] MEDS: LISINOPRIL 40 MG TABLET PO SCH (10:06)
[2018-03-30] MEDS: MELOXICAM 7.5 MG TABLET PO SCH (10:06)
[2018-03-30] MEDS: GUAIFENESIN-DM 200/20 MG 10 ML PO PRN (10:11)
[2018-03-30 12:00] VITALS: BP 128/73
[2018-03-30] MEDS: ACETAMINOPHEN 325 MG TAB PO PRN (13:51)
[2018-03-30 16:00] VITALS: BP 138/74
[2018-03-30] MEDS: CEFTRIAXONE SODIUM 1 GM IVP SCH (18:39)
[2018-03-30] MEDS: AZITHROMYCIN 500MG+NS 250ML 250 ML IV SCH (18:39)
[2018-03-30 20:00] VITALS: BP 143/78
[2018-03-31] VITALS: BP 139/76
[2018-03-31] MEDS: IPRATROPIUM/ALBUTEROL SULFATE 3 ML SOLUTION IH SCH ×6 (01:59→21:18)
[2018-03-31 04:00] VITALS: BP 125/85
[2018-03-31] MEDS: METHYLPREDNISOLONE SOD SUCC 125MG/2ML VIAL IVP SCH ×2 (06:17→18:12)
[2018-03-31 07:00] VITALS: BP 147/88
[2018-03-31 07:10] LABS: HEMATOCRIT 36.2 % (36-48); MEAN CORPUSCULAR HEMOGLOBIN 31.3 pg (27.0-33.0); MEAN CORPUSCULAR HGB CONC 33.2 g/dL (32.0-36.0); MEAN CORPUSCULAR VOLUME 94.3 fL (79-99); PLATELET COUNT (AUTO) 223 K/uL (130-400); RED BLOOD CELL COUNT(AUTO) 3.84 MIL/uL (4.00-5.50); RED CELL DISTRIBUTION WIDTH 14.2 % (11.0-15.5)
[2018-03-31 07:16] LABS: CREATININE 0.8 mg/dL (0.5-1.5); POTASSIUM 3.5 mmol/L (3.5-5.1)
[2018-03-31] MEDS: FAMOTIDINE 20MG TAB 20 MG TAB PO SCH ×4 (08:30→21:42)
[2018-03-31] MEDS: PANTOPRAZOLE SODIUM 40 MG TABLET.DR PO SCH (08:30)
[2018-03-31] MEDS: LISINOPRIL 40 MG TABLET PO SCH (08:30)
[2018-03-31] MEDS: MELOXICAM 7.5 MG TABLET PO SCH (08:30)
[2018-03-31 12:00] VITALS: BP 155/87
[2018-03-31 16:00] VITALS: BP 139/95
[2018-03-31] MEDS: POTASSIUM CHLORIDE 20 MEQ ERTAB PO PRN (18:11)
[2018-03-31] MEDS: AZITHROMYCIN 500MG+NS 250ML 250 ML IV SCH (18:12)
[2018-03-31] MEDS: CEFTRIAXONE SODIUM 1 GM IVP SCH (18:12)
[2018-03-31 19:10] VITALS: BP 134/85
[2018-03-31] MEDS: GUAIFENESIN-DM 200/20 MG 10 ML PO PRN (21:42)
[2018-03-31] MEDS: SODIUM CHLORIDE 0.9% 1000ML 1,000 ML IV SCH (21:46)
[2018-04-01 00:15] VITALS: BP 140/82
[2018-04-01] MEDS: IPRATROPIUM/ALBUTEROL SULFATE 3 ML SOLUTION IH SCH ×3 (01:57→09:40)
[2018-04-01 04:15] VITALS: BP 136/79
[2018-04-01] MEDS: SODIUM CHLORIDE 0.9% 1000ML 1,000 ML IV SCH (05:45)
[2018-04-01] MEDS: METHYLPREDNISOLONE SOD SUCC 125MG/2ML VIAL IVP SCH (06:14)
[2018-04-01 08:00] VITALS: BP 152/92
[2018-04-01] MEDS: FAMOTIDINE 20MG TAB 20 MG TAB PO SCH ×2 (09:00→09:06)
[2018-04-01] MEDS: LISINOPRIL 40 MG TABLET PO SCH (09:06)
[2018-04-01] MEDS: PANTOPRAZOLE SODIUM 40 MG TABLET.DR PO SCH (09:07)
[2018-04-01] MEDS: MELOXICAM 7.5 MG TABLET PO SCH (09:07)
== END 2018-04-01 12:35 | disposition home or self-care (01) | DRG 190 ==
LOC: EDH 17:24 → EDHIP 17:25 → 3BH 20:39
PROVIDERS: ADMIT Family Medicine; ATTEND Family Medicine
DX: J44.0 Chronic obstructive pulmonary disease with (acute) lower respiratory infection (principal); J18.9 Pneumonia, unspecified organism; E44.1 Mild protein-calorie malnutrition; J44.1 Chronic obstructive pulmonary disease with (acute) exacerbation; M19.90 Unspecified osteoarthritis, unspecified site; I10 Essential (primary) hypertension; E78.5 Hyperlipidemia, unspecified; Z96.653 Presence of artificial knee joint, bilateral
CPT/HCPCS: 36415; 71046; 80048; 80053; 85025; 85027; 87040; 87071; 87205; 94640; 94664; A4218; J0456; J0696; J2930; J7030

== ENCOUNTER 2018-08-30 15:37 | Inpatient (IN) | payer MEDICARE ==
[~2018-08-30] VITALS: Ht 160 cm; Wt 76.2 kg
[~2018-08-30 15:37] MED LIST changes: -FAMO-136 PO; +FAMO20TA8 PO; -PROAIR HFA IH
[2018-08-30] MEDS ORDERED: CEFTRIAXONE SODIUM 1 GM ONE (15:58)
[2018-08-30] MEDS ORDERED: METHYLPREDNISOLONE SOD SUCC 125MG/2ML VIAL ONE (15:58)
[2018-08-30] MEDS: SODIUM CHLORIDE 0.9% 1000ML 1,000 ML IV SCH (16:00)
[2018-08-30 16:13] LABS: BASOPHILS % (AUTO) 1.2 % (0.0-5.0); EOSINOPHILS % (AUTO) 4.3 % (0.0-8.0); HEMATOCRIT 37.9 % (36-48); LYMPHOCYTES % (AUTO) 27.4 % (21.0-51.0); MEAN CORPUSCULAR HEMOGLOBIN 31.3 pg (27.0-33.0); MEAN CORPUSCULAR HGB CONC 33.2 g/dL (32.0-36.0); MEAN CORPUSCULAR VOLUME 94.2 fL (79-99); MONOCYTES % (AUTO) 7.7 % (3.0-13.0); NEUTROPHILS % (AUTO) 59.4 % (40.0-77.0); PLATELET COUNT (AUTO) 240 K/uL (130-400); RED BLOOD CELL COUNT(AUTO) 4.02 MIL/uL (4.00-5.50); RED CELL DISTRIBUTION WIDTH 14.1 % (11.0-15.5); WHITE BLOOD COUNT (AUTO) 11.1 K/uL (4.8-10.8)
[2018-08-30] MEDS ORDERED: AZITHROMYCIN 500MG+NS 250ML 250 ML IV ONE (16:29)
[2018-08-30 16:44] LABS: CREATININE 0.8 mg/dL (0.5-1.5); POTASSIUM 3.5 mmol/L (3.5-5.1)
[2018-08-30 16:49] LABS: ALBUMIN 3.4 g/dL (3.5-5.0); BILIRUBIN,TOTAL 0.8 mg/dL (0.2-1.0); TOTAL PROTEIN, SERUM 6.5 g/dL (6.0-8.3)
[2018-08-30] MEDS ORDERED: ZOLPIDEM TARTRATE 5 MG TAB PO PRN (19:00)
[2018-08-30] MEDS ORDERED: DIPHENHYDRAMINE HCL 25 MG CAPSULE PO PRN (19:00)
[2018-08-30] MEDS ORDERED: POTASSIUM CHLORIDE 20MEQ/100ML 100 ML IV PRN (19:00)
[2018-08-30] MEDS ORDERED: LIDOCAINE HCL-MPF 1% 2ML VIAL IJ PRN (19:00)
[2018-08-30] MEDS ORDERED: CLONIDINE HCL 0.1 MG TABLET PO PRN (19:00)
[2018-08-30] MEDS ORDERED: MAG HYDROX/AL HYDROX/SIMETH ES 30 ML SUSP UDCUP PO PRN (19:00)
[2018-08-30] MEDS ORDERED: ACETAMINOPHEN-CODEINE 300/30MG TAB PO PRN (19:00)
[2018-08-30] MEDS ORDERED: DiphenhydrAMINE HCL 50 MG/ML VIAL IVP PRN (19:00)
[2018-08-30] MEDS ORDERED: POTASSIUM CHLORIDE 20 MEQ ERTAB PO PRN (19:00)
[2018-08-30] MEDS ORDERED: NITROGLYCERIN 0.4 MG SL TAB SL PRN (19:00)
[2018-08-30] MEDS ORDERED: ONDANSETRON HCL 4 MG/2 ML VIAL IVP PRN (19:00)
[2018-08-30] MEDS ORDERED: ACETAMINOPHEN 325 MG TAB PO PRN (19:00)
[2018-08-30] MEDS ORDERED: LACTULOSE 20 GM/30 ML UDCUP PO PRN (19:00)
[2018-08-30] MEDS: IPRATROPIUM/ALBUTEROL SULFATE 3 ML SOLUTION IH SCH (21:59)
[2018-08-30 22:47] VITALS: BP 139/90
[2018-08-30] MEDS: FAMOTIDINE 20MG TAB 20 MG TAB PO SCH (23:07)
[2018-08-31] MEDS: IPRATROPIUM/ALBUTEROL SULFATE 3 ML SOLUTION IH SCH ×6 (01:43→21:23)
[2018-08-31 04:20] VITALS: BP 138/74
[2018-08-31] MEDS: SODIUM CHLORIDE 0.9% 1000ML 1,000 ML IV SCH ×2 (05:46→16:58)
[2018-08-31] MEDS: GUAIFENESIN-DM 200/20 MG 10 ML PO PRN (05:46)
[2018-08-31 08:00] VITALS: BP 153/84
[2018-08-31] MEDS: ACETAMINOPHEN 325 MG TAB PO PRN (08:29)
[2018-08-31] MEDS: FAMOTIDINE 20MG TAB 20 MG TAB PO SCH ×2 (08:29→23:07)
[2018-08-31] MEDS: METHYLPREDNISOLONE SOD SUCC 125MG/2ML VIAL IV SCH (08:30)
[2018-08-31] MEDS ORDERED: DOCUSATE SODIUM 100 MG CAP PO PRN (08:30)
[2018-08-31] MEDS ORDERED: FAMOTIDINE 20MG TAB 20 MG TAB PO SCH (09:00)
[2018-08-31] MEDS: MELOXICAM 7.5 MG TABLET PO SCH (11:20)
[2018-08-31] MEDS: LISINOPRIL 40 MG TABLET PO SCH (11:20)
[2018-08-31] MEDS: POTASSIUM CHLORIDE 10% ELIXIR 20 MEQ/15 ML UDCUP PO PRN ×2 (11:20→15:32)
[2018-08-31 12:00] VITALS: BP 154/97
--- NOTE | 2018-08-31 14:22 | NUR ---
VALERIE Perry met with pt and family who states she lives with her [address] [phone]. Pt has provider 3hrs daily thru [facility] to assist with ADLS and home management. Pt has susanna cole w/c O2 thru [employer], nebulizer. No HH. Family drives as needed. Plan is home with family Addendum: 08/31/18 at 1425 by MANUELA SCHULTZ Amended: Links added.
[2018-08-31] MEDS: CEFTRIAXONE SODIUM 1 GM IVP SCH (15:32)
[2018-08-31 16:00] VITALS: BP 135/78
[2018-08-31] MEDS: AZITHROMYCIN 500MG+NS 250ML 250 ML IV SCH (16:56)
[2018-08-31 19:25] VITALS: BP 131/77
[2018-09-01 00:22] VITALS: BP 131/74
[2018-09-01] MEDS: IPRATROPIUM/ALBUTEROL SULFATE 3 ML SOLUTION IH SCH ×6 (01:01→22:04)
[2018-09-01] MEDS: GUAIFENESIN-DM 200/20 MG 10 ML PO PRN (03:49)
[2018-09-01] MEDS: ACETAMINOPHEN 325 MG TAB PO PRN ×2 (03:50→19:59)
[2018-09-01 04:12] VITALS: BP 135/77
[2018-09-01 04:44] LABS: HEMATOCRIT 36.4 % (36-48); MEAN CORPUSCULAR HEMOGLOBIN 30.7 pg (27.0-33.0); MEAN CORPUSCULAR HGB CONC 32.5 g/dL (32.0-36.0); MEAN CORPUSCULAR VOLUME 94.6 fL (79-99); NUCLEATED RED BLOOD CELLS 0.1 % (0.0-0.19); PLATELET COUNT (AUTO) 249 K/uL (130-400); RED BLOOD CELL COUNT(AUTO) 3.85 MIL/uL (4.00-5.50); RED CELL DISTRIBUTION WIDTH 14.5 % (11.0-15.5); WHITE BLOOD COUNT (AUTO) 12.3 K/uL (4.8-10.8)
[2018-09-01 05:03] LABS: CREATININE 0.8 mg/dL (0.5-1.5); POTASSIUM 3.8 mmol/L (3.5-5.1)
[2018-09-01 08:00] VITALS: BP 147/89
[2018-09-01] MEDS ORDERED: ARTIFICAL TEARS SOL 15 ML OS PRN (08:30)
[2018-09-01] MEDS: MELOXICAM 7.5 MG TABLET PO SCH (10:01)
[2018-09-01] MEDS: METHYLPREDNISOLONE SOD SUCC 125MG/2ML VIAL IV SCH (10:01)
[2018-09-01] MEDS: LISINOPRIL 40 MG TABLET PO SCH (10:02)
[2018-09-01] MEDS: FAMOTIDINE 20MG TAB 20 MG TAB PO SCH ×2 (10:02→19:58)
[2018-09-01 12:00] VITALS: BP 148/91
[2018-09-01 16:00] VITALS: BP 159/94
[2018-09-01] MEDS: CEFTRIAXONE SODIUM 1 GM IVP SCH (16:54)
[2018-09-01] MEDS: AZITHROMYCIN 500MG+NS 250ML 250 ML IV SCH (16:54)
[2018-09-01 19:10] VITALS: BP 137/79
[2018-09-02] VITALS (7 sets, daily range): BP systolic 134–162; BP diastolic 79–98
[2018-09-02] MEDS: IPRATROPIUM/ALBUTEROL SULFATE 3 ML SOLUTION IH SCH ×6 (02:11→22:03)
[2018-09-02 04:21] LABS: HEMATOCRIT 36.4 % (36-48); MEAN CORPUSCULAR HEMOGLOBIN 31.5 pg (27.0-33.0); MEAN CORPUSCULAR HGB CONC 33.2 g/dL (32.0-36.0); MEAN CORPUSCULAR VOLUME 94.7 fL (79-99); PLATELET COUNT (AUTO) 202 K/uL (130-400); RED BLOOD CELL COUNT(AUTO) 3.85 MIL/uL (4.00-5.50); RED CELL DISTRIBUTION WIDTH 14.2 % (11.0-15.5)
[2018-09-02] MEDS: LISINOPRIL 40 MG TABLET PO SCH (08:16)
[2018-09-02] MEDS: MELOXICAM 7.5 MG TABLET PO SCH (08:17)
[2018-09-02] MEDS: FAMOTIDINE 20MG TAB 20 MG TAB PO SCH ×2 (08:17→21:19)
[2018-09-02] MEDS: METHYLPREDNISOLONE SOD SUCC 125MG/2ML VIAL IV SCH (08:17)
[2018-09-02] MEDS: GUAIFENESIN-DM 200/20 MG 10 ML PO PRN (08:24)
[2018-09-02] MEDS: AZITHROMYCIN 500MG+NS 250ML 250 ML IV SCH (16:53)
[2018-09-02] MEDS: CEFTRIAXONE SODIUM 1 GM IVP SCH (16:53)
[2018-09-02] MEDS: ACETAMINOPHEN 325 MG TAB PO PRN (19:39)
[2018-09-03 00:10] VITALS: BP 152/93
[2018-09-03] MEDS: IPRATROPIUM/ALBUTEROL SULFATE 3 ML SOLUTION IH SCH ×6 (01:50→21:02)
[2018-09-03 02:55] VITALS: BP 145/79
[2018-09-03] MEDS: GUAIFENESIN-DM 200/20 MG 10 ML PO PRN ×2 (03:10→08:36)
[2018-09-03 08:00] VITALS: BP 151/79
[2018-09-03] MEDS: METHYLPREDNISOLONE SOD SUCC 125MG/2ML VIAL IV SCH (08:36)
[2018-09-03] MEDS: MELOXICAM 7.5 MG TABLET PO SCH (08:36)
[2018-09-03] MEDS: FAMOTIDINE 20MG TAB 20 MG TAB PO SCH ×2 (08:36→20:45)
[2018-09-03] MEDS: LISINOPRIL 40 MG TABLET PO SCH (08:37)
[2018-09-03 12:00] VITALS: BP 145/86
[2018-09-03 16:00] VITALS: BP 146/93
[2018-09-03] MEDS: CEFTRIAXONE SODIUM 1 GM IVP SCH (16:14)
[2018-09-03] MEDS: AZITHROMYCIN 500MG+NS 250ML 250 ML IV SCH (16:14)
[2018-09-03 19:45] VITALS: BP 146/80
[2018-09-04] VITALS (7 sets, daily range): BP systolic 135–178; BP diastolic 73–92
[2018-09-04] MEDS: GUAIFENESIN-DM 200/20 MG 10 ML PO PRN ×2 (00:40→10:05)
[2018-09-04] MEDS: IPRATROPIUM/ALBUTEROL SULFATE 3 ML SOLUTION IH SCH ×6 (01:07→21:02)
[2018-09-04] MEDS: FAMOTIDINE 20MG TAB 20 MG TAB PO SCH ×2 (08:22→21:24)
[2018-09-04] MEDS: METHYLPREDNISOLONE SOD SUCC 125MG/2ML VIAL IV SCH (08:22)
[2018-09-04] MEDS: MELOXICAM 7.5 MG TABLET PO SCH (08:22)
[2018-09-04] MEDS: LISINOPRIL 40 MG TABLET PO SCH (08:22)
[2018-09-04] MEDS: AZITHROMYCIN 500MG+NS 250ML 250 ML IV SCH (16:46)
[2018-09-04] MEDS: CEFTRIAXONE SODIUM 1 GM IVP SCH (16:46)
[2018-09-05] MEDS: IPRATROPIUM/ALBUTEROL SULFATE 3 ML SOLUTION IH SCH ×6 (01:06→21:04)
[2018-09-05 03:59] VITALS: BP 133/77
[2018-09-05 05:35] LABS: HEMATOCRIT 36.9 % (36-48); MEAN CORPUSCULAR HEMOGLOBIN 31.2 pg (27.0-33.0); MEAN CORPUSCULAR VOLUME 94.5 fL (79-99); NUCLEATED RED BLOOD CELLS 0.1 % (0.0-0.19); PLATELET COUNT (AUTO) 240 K/uL (130-400); RED CELL DISTRIBUTION WIDTH 14.4 % (11.0-15.5); WHITE BLOOD COUNT (AUTO) 12.2 K/uL (4.8-10.8)
[2018-09-05 05:40] LABS: CREATININE 0.7 mg/dL (0.5-1.5); MAGNESIUM 2.2 mg/dL (1.80-2.40); POTASSIUM 4.1 mmol/L (3.5-5.1)
[2018-09-05 07:30] VITALS: BP 148/87
[2018-09-05] MEDS: METHYLPREDNISOLONE SOD SUCC 125MG/2ML VIAL IV SCH (08:33)
[2018-09-05] MEDS: MELOXICAM 7.5 MG TABLET PO SCH (08:33)
[2018-09-05] MEDS: FAMOTIDINE 20MG TAB 20 MG TAB PO SCH ×2 (08:34→21:49)
[2018-09-05] MEDS: LISINOPRIL 40 MG TABLET PO SCH (08:34)
[2018-09-05] MEDS: GUAIFENESIN-DM 200/20 MG 10 ML PO PRN (10:17)
[2018-09-05 11:00] VITALS: BP 157/93
[2018-09-05 15:30] VITALS: BP 158/99
[2018-09-05] MEDS: CEFTRIAXONE SODIUM 1 GM IVP SCH (16:58)
[2018-09-05] MEDS: AZITHROMYCIN 500MG+NS 250ML 250 ML IV SCH (16:58)
[2018-09-05 19:58] VITALS: BP 161/80
[2018-09-05] MEDS: ACETAMINOPHEN 325 MG TAB PO PRN (21:50)
[2018-09-05 23:53] VITALS: BP 138/78
[2018-09-06] MEDS: IPRATROPIUM/ALBUTEROL SULFATE 3 ML SOLUTION IH SCH ×4 (01:03→14:25)
[2018-09-06] MEDS: GUAIFENESIN-DM 200/20 MG 10 ML PO PRN (04:10)
[2018-09-06 04:38] VITALS: BP 163/89
[2018-09-06 07:47] VITALS: BP 156/95
[2018-09-06] MEDS: FAMOTIDINE 20MG TAB 20 MG TAB PO SCH (08:47)
[2018-09-06] MEDS: MELOXICAM 7.5 MG TABLET PO SCH (08:48)
[2018-09-06] MEDS: METHYLPREDNISOLONE SOD SUCC 125MG/2ML VIAL IV SCH (08:48)
[2018-09-06] MEDS: LISINOPRIL 40 MG TABLET PO SCH (08:48)
[2018-09-06 11:00] VITALS: BP 146/86
== END 2018-09-06 16:30 | disposition home or self-care (01) | DRG 192 ==
LOC: EDH 15:37 → UNDOADMIN 15:38 → EDHIP 15:38 → 3DH 20:43
PROVIDERS: ADMIT Family Medicine; ATTEND Family Medicine
DX: J44.1 Chronic obstructive pulmonary disease with (acute) exacerbation (principal); I10 Essential (primary) hypertension; E78.5 Hyperlipidemia, unspecified; M19.90 Unspecified osteoarthritis, unspecified site; D72.829 Elevated white blood cell count, unspecified; Z96.653 Presence of artificial knee joint, bilateral
CPT/HCPCS: 36415; 71046; 80048; 80053; 83735; 85025; 85027; 94640; 94664; A4218; G0378; J0456; J0696; J2930; J7030

== ENCOUNTER 2018-10-20 12:16 | Emergency (ER) | payer MEDICARE ==
[~2018-10-20 12:16] MED LIST changes: -IPRA4AER IH; -PANT40TA25 PO
[2018-10-20] MEDS ORDERED: METHYLPREDNISOLONE SOD SUCC 40MG/ML 1ML ONE (12:43)
[2018-10-20] MEDS ORDERED: IPRATROPIUM/ALBUTEROL SULFATE 3 ML SOLUTION IH ONE ×2 (12:49)
== END 2018-10-20 13:59 | disposition home or self-care (01) ==
LOC: EDH 12:16
DX: J45.41 Moderate persistent asthma with (acute) exacerbation (principal); E78.5 Hyperlipidemia, unspecified; I10 Essential (primary) hypertension; J44.9 Chronic obstructive pulmonary disease, unspecified; Z98.890 Other specified postprocedural states
CPT/HCPCS: 71046; 94640 ×2; 96372; 99284; J2920

== ENCOUNTER 2018-10-26 17:05 | Inpatient (IN) | payer MEDICARE | END 2018-10-29 13:50 | disposition home or self-care (01) | LOC: EDH 17:05 → EDHIP 17:32 → 3DH 18:00 | DX: J44.1 Chronic obstructive pulmonary disease with (acute) exacerbation (principal); I10 Essential (primary) hypertension; E78.5 Hyperlipidemia, unspecified; M19.90 Unspecified osteoarthritis, unspecified site ==

== ENCOUNTER 2018-11-14 19:50 | Inpatient (IN) | payer MEDICARE | END 2018-11-19 10:00 | disposition home or self-care (01) | LOC: EDH 19:50 → 3DH 20:56 | DX: J44.1 Chronic obstructive pulmonary disease with (acute) exacerbation (principal); I10 Essential (primary) hypertension; M19.90 Unspecified osteoarthritis, unspecified site; E78.5 Hyperlipidemia, unspecified ==

== ENCOUNTER 2019-01-16 07:15 | Inpatient (IN) | payer MEDICARE ==
[~2019-01-16] VITALS: Ht 162.6 cm; Wt 77.1 kg
[2019-01-16] VITALS (41 sets, daily range): BP systolic 84–148; BP diastolic 48–97
[~2019-01-16 07:15] MED LIST changes: +ALBU8.5H8 IH; +ALBUTEROL SULFATE 0.083% 2.5 MG/3 ML INH IH ONE; +IBUP-2077 PO; +IPRA4AER IH; -MELO-108 PO; +PANT40TA25 PO
[2019-01-16] MEDS ORDERED: MAGNESIUM 2GM PREMIX 50ML 50 ML IV ONE (07:18)
[2019-01-16] MEDS ORDERED: PROPOFOL 1000 MG/100 ML 100 ML IV ONE ×2 (07:25→11:15)
[2019-01-16] MEDS ORDERED: KETAMINE 50MG/ML SYRINGE 50 MG/ML DISP.SYRIN IV ONE ×2 (07:26→07:27)
[2019-01-16] MEDS ORDERED: METHYLPREDNISOLONE SOD SUCC 125MG/2ML VIAL ONE (07:27)
[2019-01-16 07:28] LABS: ABG BASE EXCESS -4.7 mmol/L (-2.0-3.0); ABG HCO3 24.1 mmol/L (21.0-28.0); ABG OXYGEN SATURATION 96.5 % (95.0-99.0); ABG PCO2 61 mmHg (32-45)
[2019-01-16] MEDS ORDERED: ONDANSETRON HCL 4 MG/2 ML VIAL ONE (07:28)
[2019-01-16 07:36] LABS: BASOPHILS % (AUTO) 0.5 % (0.0-5.0); HEMATOCRIT 38.3 % (36-48); LYMPHOCYTES % (AUTO) 31.9 % (21.0-51.0); MEAN CORPUSCULAR HEMOGLOBIN 31.8 pg (27.0-33.0); MEAN CORPUSCULAR HGB CONC 32.9 g/dL (32.0-36.0); MEAN CORPUSCULAR VOLUME 96.6 fL (79-99); MONOCYTES % (AUTO) 5.9 % (3.0-13.0); NEUTROPHILS % (AUTO) 57.7 % (40.0-77.0); PLATELET COUNT (AUTO) 258 K/uL (130-400); RED BLOOD CELL COUNT(AUTO) 3.97 MIL/uL (4.00-5.50); RED CELL DISTRIBUTION WIDTH 13.8 % (11.0-15.5); WHITE BLOOD COUNT (AUTO) 12.1 K/uL (4.8-10.8)
[2019-01-16] MEDS ORDERED: ZOSYN 3.375GM+NS 50ML 50 ML IV ONE (07:50)
[2019-01-16 07:58] LABS: CREATININE 0.6 mg/dL (0.5-1.5); POTASSIUM 3.7 mmol/L (3.5-5.1)
[2019-01-16 08:04] LABS: ALBUMIN 3.6 g/dL (3.5-5.0); BILIRUBIN,DIRECT 0.1 mg/dL (0.0-0.3); BILIRUBIN,TOTAL 0.5 mg/dL (0.2-1.0); TOTAL PROTEIN, SERUM 7.7 g/dL (6.0-8.3)
[2019-01-16 08:36] LABS: B-TYPE NATRIURETIC PEPTIDE 78 pg/mL (0-100)
[2019-01-16] MEDS ORDERED: MIDAZOLAM HCL 1 MG/ML 2ML VIAL ONE (08:50)
[2019-01-16 09:15] LABS: ABG BASE EXCESS -2.7 mmol/L (-2.0-3.0); ABG HCO3 23.4 mmol/L (21.0-28.0); ABG OXYGEN SATURATION 99.9 % (95.0-99.0); ABG PCO2 46 mmHg (32-45)
[2019-01-16] MEDS ORDERED: SODIUM CHLORIDE 0.9% 10 ML VIAL IVP SCH (09:30)
[2019-01-16] MEDS ORDERED: POTASSIUM CHLORIDE 20 MEQ ERTAB PO PRN (09:30)
[2019-01-16] MEDS ORDERED: DEXTROSE 50%-WATER 50 ML DISP.SYRIN IV PRN (09:30)
[2019-01-16] MEDS ORDERED: LIDOCAINE HCL-MPF 1% 2ML VIAL IJ PRN (09:30)
[2019-01-16] MEDS ORDERED: GLUCAGON 1MG KIT 1 MG ML IM PRN (09:30)
[2019-01-16] MEDS ORDERED: ONDANSETRON HCL 4 MG/2 ML VIAL IVP PRN (09:30)
[2019-01-16] MEDS ORDERED: ENOXAPARIN SODIUM 100 MG/1 ML SQ ONE (09:52)
[2019-01-16 10:38] LABS: APPEARANCE,URINE Clear (CLEAR); BILIRUBIN,URINE Negative (NEGATIVE); COLOR,URINE Yellow (YELLOW); GLUCOSE, URINE (UA) Negative (NEGATIVE); KETONES,URINE Negative (NEGATIVE); LEUKOCYTE ESTERASE ,URINE Moderate (NEGATIVE); NITRATE,URINE Negative (NEGATIVE); OCCULT BLOOD,URINE Moderate (NEGATIVE); PH,URINE 6.5 (5.0-8.0); PROTEIN,URINE POS 2+ mg/dL (NEGATIVE); UROBILINOGEN,URINE 0.2 mg/dL (0.2-1.0)
[2019-01-16] MEDS ORDERED: IOHEXOL-350 75 ML VIAL IV ONE (10:48)
[2019-01-16 11:11] LABS: BACTERIA,URINE Moderate /HPF (None Seen); WBC,URINE 26-50 /HPF (0-1)
[2019-01-16] MEDS: INSULIN R PO SSI SQ SCH ×3 (11:30→21:00)
[2019-01-16] MEDS ORDERED: LORA10CA9 PO (12:00)
[2019-01-16] MEDS ORDERED: PRED20TA3 PO (12:00)
[2019-01-16] MEDS ORDERED: PROPOFOL 1000 MG/100 ML IV PRN (12:45)
[2019-01-16] MEDS ORDERED: ENOXAPARIN SODIUM 1 MG/KG SQ SCH (12:52)
[2019-01-16] MEDS: FAMOTIDINE/PF 20 MG/2 ML VIAL IV SCH ×2 (12:58→21:16)
[2019-01-16] MEDS ORDERED: METHYLPREDNISOLONE SOD SUCC 40MG/ML 1ML IVP SCH (13:00)
--- NOTE | 2019-01-16 13:00 | NUR ---
DR. PERRY IN TO SEE PT. PLAN OF CARE DISCUSSED. NEW ORDERS RECEIVED AND NOTED. SON AT BEDSIDE UPDATED AND ALL QUESTIONS ANSWERED.
[2019-01-16] MEDS ORDERED: IPRATROPIUM/ALBUTEROL SULFATE 3 ML SOLUTION IH ONE (13:27)
[2019-01-16] MEDS: IPRATROPIUM/ALBUTEROL SULFATE 3 ML SOLUTION IH SCH ×3 (13:38→23:51)
[2019-01-16] MEDS ORDERED: ROCURONIUM BROMIDE 10MG/1ML 5ML VL IV ONE (13:54)
[2019-01-16] MEDS: PROPOFOL 1000 MG/100 ML 100 ML IV PRN ×2 (15:46→21:18)
[2019-01-16] MEDS: METHYLPREDNISOLONE SOD SUCC 40MG/ML 1ML IVP SCH ×2 (15:46→21:19)
[2019-01-16] MEDS: ZOSYN 3.375GM+NS 50ML 50 ML IV SCH ×2 (15:46→21:18)
--- NOTE | 2019-01-16 16:00 | NUR ---
DR. CABELLO AT BEDSIDE. PLAN OF CARE DISCUSSED.
[2019-01-16] MEDS ORDERED: ZOSYN 3.375GM+NS 50ML 50 ML IV SCH (21:00)
[2019-01-16] MEDS: ENOXAPARIN SODIUM 80 MG/0.8 ML SQ SCH (21:15)
[2019-01-16] MEDS: OSELTAMIVIR PHOSPHATE 75 MG CAP PO SCH (21:16)
[2019-01-17] VITALS (69 sets, daily range): BP systolic 54–171; BP diastolic 34–117
[2019-01-17] MEDS: PROPOFOL 1000 MG/100 ML 100 ML IV PRN (02:41)
[2019-01-17 03:48] LABS: HEMATOCRIT 33.7 % (36-48); MEAN CORPUSCULAR HGB CONC 33.6 g/dL (32.0-36.0); MEAN CORPUSCULAR VOLUME 95.2 fL (79-99); PLATELET COUNT (AUTO) 257 K/uL (130-400); RED BLOOD CELL COUNT(AUTO) 3.54 MIL/uL (4.00-5.50); RED CELL DISTRIBUTION WIDTH 14.5 % (11.0-15.5); WHITE BLOOD COUNT (AUTO) 9.8 K/uL (4.8-10.8)
[2019-01-17] MEDS: METHYLPREDNISOLONE SOD SUCC 40MG/ML 1ML IVP SCH ×4 (04:05→21:49)
[2019-01-17 04:10] LABS: ALBUMIN 2.9 g/dL (3.5-5.0); BILIRUBIN,TOTAL 0.4 mg/dL (0.2-1.0); CREATININE 0.7 mg/dL (0.5-1.5); POTASSIUM 3.3 mmol/L (3.5-5.1); TOTAL PROTEIN, SERUM 6.4 g/dL (6.0-8.3)
[2019-01-17 04:20] LABS: ABG BASE EXCESS -0.2 mmol/L (-2.0-3.0); ABG HCO3 22.3 mmol/L (21.0-28.0); ABG PCO2 31 mmHg (32-45)
[2019-01-17] MEDS: POTASSIUM CHLORIDE 20MEQ/100ML 100 ML IV PRN ×2 (05:15→06:09)
[2019-01-17] MEDS: ZOSYN 3.375GM+NS 50ML 50 ML IV SCH ×3 (05:16→21:48)
[2019-01-17] MEDS: IPRATROPIUM/ALBUTEROL SULFATE 3 ML SOLUTION IH SCH ×5 (06:22→23:38)
[2019-01-17] MEDS: INSULIN R PO SSI SQ SCH ×4 (07:30→20:55)
[2019-01-17] MEDS: LEVOFLOXACIN 500 MG/D5W 100 ML 100 ML IV SCH (08:11)
[2019-01-17] MEDS: FAMOTIDINE/PF 20 MG/2 ML VIAL IV SCH ×2 (08:11→21:03)
[2019-01-17] MEDS: OSELTAMIVIR PHOSPHATE 75 MG CAP PO SCH ×2 (08:13→21:03)
[2019-01-17] MEDS: ENOXAPARIN SODIUM 80 MG/0.8 ML SQ SCH ×2 (08:13→21:04)
[2019-01-17] MEDS ORDERED: LACTULOSE 20 GM/30 ML UDCUP PO PRN (09:00)
[2019-01-17] MEDS ORDERED: PANTOPRAZOLE 40 MG/VIAL IVP SCH (09:00)
[2019-01-17] MEDS ORDERED: DOCUSATE SODIUM 100 MG CAP PO PRN (09:00)
[2019-01-17 10:54] LABS: ABG HCO3 24.2 mmol/L (21.0-28.0); ABG OXYGEN SATURATION 99.1 % (95.0-99.0); ABG PCO2 34 mmHg (32-45)
--- NOTE | 2019-01-17 11:25 | NUR ---
EXTUBATED AT THIS TIME, TOLERATED WELL, PLACED ON FACEMASK 40% FIO2, O2 SAT AT 99%
--- NOTE | 2019-01-17 14:00 | NUR ---
CANSECO CATHETER INTACT DISCONTINUED, TOLERATED PROCEDURE WELL
[2019-01-17] MEDS ORDERED: HYDRALAZINE HCL 20 MG/ML VIAL IV PRN (14:15)
--- NOTE | 2019-01-17 15:56 | NUR ---
RD NOTIFICATION DX: RESPIRATORY FAILURE. DIET: NONE PLACED. HX: COPD, ULCERS, LEFT HIP FRACTURE, ASTHMA. BMI 13.4; CLASSIFIED SEVERELY UNDERWEIGHT. MEDS: DUONEB, PEPCID, LOVENOX, HUMULIN R, GLUCAGON, ZOFRAN, COLACE, LACTULOSE. LABS: WBC 12, PH 7.4, PCO2 31, BG 142, K 3.3, ALB 2.9. PT ON MECHANICAL VENTILATION, WILL BE EXTUBATED SOON PER NURSE. PT WILL HAVE A DIET ORDER ONCE EXTUBATED. RD RECOMMENDS ADVANCE DIET TOLERATED WHEN MEDICALLY FEASIBLE. RD WILL CONTINUE TO MONITOR AND FOLLOW UP NEEDED. THANK YOU. Addendum: 01/17/19 at [address] Amended: Links added.
[2019-01-17] MEDS: ACETAMINOPHEN 325 MG TAB PO PRN (17:44)
--- NOTE | 2019-01-17 19:28 | NUR ---
DC Plan Patient in ICU. CM to follow up once patient is more stable. Anticipate dcp to SNF vs. LTACH. CD Addendum: 01/17/19 at 1929 by CARLINE JACOBSEN CM Amended: Links added.
[2019-01-18] VITALS (40 sets, daily range): BP systolic 119–164; BP diastolic 62–113
[2019-01-18 03:46] LABS: HEMATOCRIT 33.6 % (36-48); MEAN CORPUSCULAR HEMOGLOBIN 32.9 pg (27.0-33.0); MEAN CORPUSCULAR HGB CONC 34.2 g/dL (32.0-36.0); MEAN CORPUSCULAR VOLUME 96.1 fL (79-99); PLATELET COUNT (AUTO) 255 K/uL (130-400); WHITE BLOOD COUNT (AUTO) 9.3 K/uL (4.8-10.8)
[2019-01-18 03:52] LABS: ABG BASE EXCESS -0.4 mmol/L (-2.0-3.0); ABG HCO3 24.1 mmol/L (21.0-28.0); ABG OXYGEN SATURATION 97.2 % (95.0-99.0); ABG PCO2 39 mmHg (32-45)
[2019-01-18 03:57] LABS: CREATININE 0.7 mg/dL (0.5-1.5); POTASSIUM 3.5 mmol/L (3.5-5.1)
[2019-01-18] MEDS ORDERED: POTASSIUM CHLORIDE 20 MEQ ERTAB PO PRN (04:45)
[2019-01-18] MEDS: POTASSIUM CHLORIDE 10% ELIXIR 20 MEQ/15 ML UDCUP PO PRN ×2 (05:06→06:42)
[2019-01-18] MEDS: METHYLPREDNISOLONE SOD SUCC 40MG/ML 1ML IVP SCH ×2 (05:06→13:00)
[2019-01-18] MEDS: ZOSYN 3.375GM+NS 50ML 50 ML IV SCH ×3 (05:06→20:54)
[2019-01-18] MEDS: IPRATROPIUM/ALBUTEROL SULFATE 3 ML SOLUTION IH SCH ×5 (06:14→23:09)
[2019-01-18] MEDS: INSULIN R PO SSI SQ SCH ×4 (07:24→20:51)
[2019-01-18] MEDS: FAMOTIDINE/PF 20 MG/2 ML VIAL IV SCH ×2 (08:57→20:55)
[2019-01-18] MEDS: ENOXAPARIN SODIUM 80 MG/0.8 ML SQ SCH ×2 (08:58→20:54)
[2019-01-18] MEDS: LEVOFLOXACIN 500 MG/D5W 100 ML 100 ML IV SCH (08:58)
[2019-01-18] MEDS: OSELTAMIVIR PHOSPHATE 75 MG CAP PO SCH ×2 (08:58→20:55)
--- NOTE | 2019-01-18 11:42 | NUR ---
DC Plan follow up Patient sitting up in bed w/ O2 on. lives w/ spouse. Believes name of is [facility]. DME: [employer], anjali, susanna, O2 concentrator ([employer]). Provider works 27hrs/wk. has a ramp. Confirms fall in last 6 months which led to surgery to her right let. Offered SNF. Declined. [facility] feels safe returning home to same setting. CD Addendum: 01/18/19 at 1343 by CARLINE JACOBSEN CM Amended: Links added.
[2019-01-18] MEDS: ACETAMINOPHEN 325 MG TAB PO PRN (13:14)
--- NOTE | 2019-01-18 15:45 | NUR ---
REPORT GIVEN TO JOHN COLBY RN, TRANSFERRED TO ROOM 229 VIA WHEELCHAIR.,PCCU.
--- NOTE | 2019-01-18 15:50 | NUR ---
Pt received from ICU and placed in rm 229. Patient in no distress. Alert and oriented x3. Patient sitting up in bed. IV patent. Bed to lowest position. O2 placed at 2LPM. Call light placed within reach. TV turned on. Pt with no other questions at this time.
[2019-01-19 03:48] VITALS: BP 146/75
[2019-01-19 03:50] LABS: BASOPHILS % (AUTO) 0.6 % (0.0-5.0); HEMATOCRIT 33.9 % (36-48); LYMPHOCYTES % (AUTO) 22.4 % (21.0-51.0); MEAN CORPUSCULAR HEMOGLOBIN 31.8 pg (27.0-33.0); MEAN CORPUSCULAR VOLUME 96.2 fL (79-99); NUCLEATED RED BLOOD CELLS 0.1 % (0.0-0.19); PLATELET COUNT (AUTO) 245 K/uL (130-400); RED BLOOD CELL COUNT(AUTO) 3.52 MIL/uL (4.00-5.50); RED CELL DISTRIBUTION WIDTH 14.1 % (11.0-15.5); WHITE BLOOD COUNT (AUTO) 9.6 K/uL (4.8-10.8)
[2019-01-19 04:00] LABS: CREATININE 0.6 mg/dL (0.5-1.5); MAGNESIUM 2.2 mg/dL (1.80-2.40); PHOSPHORUS 2.5 mg/dL (2.5-4.9); POTASSIUM 3.6 mmol/L (3.5-5.1)
[2019-01-19] MEDS: ZOSYN 3.375GM+NS 50ML 50 ML IV SCH (04:49)
[2019-01-19] MEDS: INSULIN R PO SSI SQ SCH ×4 (05:40→21:57)
[2019-01-19] MEDS: IPRATROPIUM/ALBUTEROL SULFATE 3 ML SOLUTION IH SCH ×7 (06:35→21:57)
[2019-01-19 07:43] VITALS: BP 139/73
[2019-01-19] MEDS ORDERED: METHYLPREDNISOLONE SOD SUCC 125MG/2ML VIAL IVP SCH ×2 (08:00→09:00)
[2019-01-19] MEDS: METHYLPREDNISOLONE SOD SUCC 40MG/ML 1ML IVP SCH ×2 (08:00→17:26)
[2019-01-19] MEDS ORDERED: PREDNISONE 20 MG TABLET PO SCH ×2 (09:00)
[2019-01-19] MEDS: OSELTAMIVIR PHOSPHATE 75 MG CAP PO SCH ×2 (09:46→20:51)
[2019-01-19] MEDS: FAMOTIDINE/PF 20 MG/2 ML VIAL IV SCH ×2 (09:46→20:51)
[2019-01-19] MEDS: LEVOFLOXACIN 500 MG/D5W 100 ML 100 ML IV SCH (09:46)
[2019-01-19] MEDS: ENOXAPARIN SODIUM 80 MG/0.8 ML SQ SCH ×2 (09:47→20:51)
[2019-01-19] MEDS: GUAIFENESIN-CODEINE 5 ML SYRUP PO PRN ×2 (10:57→17:35)
[2019-01-19 11:27] VITALS: BP 144/76
[2019-01-19 15:33] VITALS: BP 138/87
--- NOTE | 2019-01-19 16:42 | NUR ---
RD Follow Up Note Pt with Breathing Tx at time of visit. Pt tolerating current diet order with no report of GI distress and fair PO intake at 75%. Pt LBM 01/18/19. Pt monitored labs: Glu 101, Alb 2.9. Recommend to add Glucerna QD. RD to continue to monitor. Please notify as additional nutrition concerns arise. Thank you. Addendum: 01/19/19 at [address] Amended: Links added.
[2019-01-19 19:44] VITALS: BP 153/93
[2019-01-19 23:36] VITALS: BP 140/85
[2019-01-20] MEDS: METHYLPREDNISOLONE SOD SUCC 40MG/ML 1ML IVP SCH ×4 (00:50→23:23)
[2019-01-20] MEDS: IPRATROPIUM/ALBUTEROL SULFATE 3 ML SOLUTION IH SCH ×6 (02:07→21:58)
[2019-01-20 04:00] VITALS: BP 128/99
[2019-01-20 04:11] LABS: ABG BASE EXCESS 1.3 mmol/L (-2.0-3.0); ABG HCO3 25.9 mmol/L (21.0-28.0); ABG OXYGEN SATURATION 97.1 % (95.0-99.0); ABG PCO2 41 mmHg (32-45)
[2019-01-20 04:19] LABS: MEAN CORPUSCULAR HEMOGLOBIN 31.6 pg (27.0-33.0); MEAN CORPUSCULAR HGB CONC 32.9 g/dL (32.0-36.0); MEAN CORPUSCULAR VOLUME 95.9 fL (79-99); NUCLEATED RED BLOOD CELLS 0.1 % (0.0-0.19); PLATELET COUNT (AUTO) 231 K/uL (130-400); RED BLOOD CELL COUNT(AUTO) 3.65 MIL/uL (4.00-5.50); RED CELL DISTRIBUTION WIDTH 13.9 % (11.0-15.5); WHITE BLOOD COUNT (AUTO) 6.9 K/uL (4.8-10.8)
[2019-01-20 04:43] LABS: CREATININE 0.6 mg/dL (0.5-1.5); POTASSIUM 3.5 mmol/L (3.5-5.1)
[2019-01-20] MEDS: GUAIFENESIN-CODEINE 5 ML SYRUP PO PRN (05:49)
--- NOTE | 2019-01-20 06:00 | NUR ---
patient woke up with a productive cough, Robitussin given at 0549
[2019-01-20] MEDS: INSULIN R PO SSI SQ SCH ×4 (06:41→20:54)
[2019-01-20 07:46] VITALS: BP 150/82
[2019-01-20 08:02] LABS: ABG BASE EXCESS 1.8 mmol/L (-2.0-3.0); ABG HCO3 26.5 mmol/L (21.0-28.0); ABG OXYGEN SATURATION 96.2 % (95.0-99.0); ABG PCO2 42 mmHg (32-45)
[2019-01-20] MEDS: LEVOFLOXACIN 500 MG/D5W 100 ML 100 ML IV SCH (10:37)
[2019-01-20] MEDS: OSELTAMIVIR PHOSPHATE 75 MG CAP PO SCH ×2 (10:37→20:51)
[2019-01-20] MEDS: FAMOTIDINE/PF 20 MG/2 ML VIAL IV SCH ×2 (10:37→20:51)
[2019-01-20] MEDS: ENOXAPARIN SODIUM 80 MG/0.8 ML SQ SCH ×2 (10:38→20:52)
[2019-01-20 11:57] VITALS: BP 168/99
[2019-01-20 15:29] VITALS: BP 127/96
[2019-01-20 19:09] VITALS: BP 140/70
[2019-01-20 23:43] VITALS: BP 137/74
[2019-01-21] MEDS: IPRATROPIUM/ALBUTEROL SULFATE 3 ML SOLUTION IH SCH ×6 (02:15→22:09)
[2019-01-21 03:38] VITALS: BP 143/76
[2019-01-21 04:23] LABS: BASOPHILS % (AUTO) 0.5 % (0.0-5.0); HEMATOCRIT 34.3 % (36-48); LYMPHOCYTES % (AUTO) 19.2 % (21.0-51.0); MEAN CORPUSCULAR HEMOGLOBIN 31.6 pg (27.0-33.0); MEAN CORPUSCULAR HGB CONC 33.2 g/dL (32.0-36.0); MEAN CORPUSCULAR VOLUME 95.3 fL (79-99); NEUTROPHILS % (AUTO) 77.3 % (40.0-77.0); NUCLEATED RED BLOOD CELLS 0.2 % (0.0-0.19); PLATELET COUNT (AUTO) 212 K/uL (130-400); RED CELL DISTRIBUTION WIDTH 13.9 % (11.0-15.5); WHITE BLOOD COUNT (AUTO) 7.6 K/uL (4.8-10.8)
[2019-01-21 04:36] LABS: CREATININE 0.6 mg/dL (0.5-1.5); MAGNESIUM 2.1 mg/dL (1.80-2.40); PHOSPHORUS 2.9 mg/dL (2.5-4.9); POTASSIUM 3.9 mmol/L (3.5-5.1)
[2019-01-21] MEDS: INSULIN R PO SSI SQ SCH ×5 (05:56→21:00)
[2019-01-21 07:47] VITALS: BP 134/77
[2019-01-21] MEDS: OSELTAMIVIR PHOSPHATE 75 MG CAP PO SCH (09:34)
[2019-01-21] MEDS: METHYLPREDNISOLONE SOD SUCC 40MG/ML 1ML IVP SCH ×2 (09:34→20:38)
[2019-01-21] MEDS: FAMOTIDINE/PF 20 MG/2 ML VIAL IV SCH ×2 (09:34→20:37)
[2019-01-21] MEDS: LEVOFLOXACIN 500 MG/D5W 100 ML 100 ML IV SCH (09:34)
[2019-01-21] MEDS: ENOXAPARIN SODIUM 80 MG/0.8 ML SQ SCH ×2 (09:35→20:37)
[2019-01-21 11:50] VITALS: BP 134/74
[2019-01-21] MEDS ORDERED: CALCIUM CARBONATE 500 MG TABLET PO PRN (12:00)
[2019-01-21] MEDS ORDERED: CALCIUM CARBON 500MG CHEW TAB PO PRN (12:45)
[2019-01-21 16:19] VITALS: BP 137/85
[2019-01-21 19:26] VITALS: BP 133/80
[2019-01-21 23:23] VITALS: BP 130/76
[2019-01-22] VITALS (7 sets, daily range): BP systolic 115–145; BP diastolic 64–87
[2019-01-22] MEDS: IPRATROPIUM/ALBUTEROL SULFATE 3 ML SOLUTION IH SCH ×6 (02:07→21:51)
[2019-01-22] MEDS: ACETAMINOPHEN 325 MG TAB PO PRN (05:24)
[2019-01-22] MEDS: INSULIN R PO SSI SQ SCH ×4 (05:26→21:00)
--- NOTE | 2019-01-22 07:35 | NUR ---
ASSESSMENT ENCOUNTERED PT A&OX3, CALM COOPERATIVE AND DOES NOT APPEAR TO BE IN ANY DISTRESS NOR ANY NEURO DEFICITS PRESENT. PT DENIES PAIN, SOB, NAUSEA. PT IS AMBULATORY, GAIT SLOW BUT STEADY WITH WALKER. PT IS ABLE TO TOLERATE FOODS, FLUIDS AND MEDICATION WITH NO THROAT CLEARING OR COUGH. CALL LIGHT WITHIN REACH.
[2019-01-22] MEDS: METHYLPREDNISOLONE SOD SUCC 40MG/ML 1ML IVP SCH ×2 (10:10→21:36)
[2019-01-22] MEDS: FAMOTIDINE/PF 20 MG/2 ML VIAL IV SCH ×2 (10:10→21:37)
[2019-01-22] MEDS: ENOXAPARIN SODIUM 80 MG/0.8 ML SQ SCH ×2 (10:11→21:37)
[2019-01-22] MEDS: LEVOFLOXACIN 500 MG/D5W 100 ML 100 ML IV SCH (10:11)
[2019-01-23] MEDS: IPRATROPIUM/ALBUTEROL SULFATE 3 ML SOLUTION IH SCH ×7 (01:47→22:08)
[2019-01-23 03:58] LABS: ABG BASE EXCESS 2.4 mmol/L (-2.0-3.0); ABG HCO3 26.4 mmol/L (21.0-28.0); ABG OXYGEN SATURATION 96.8 % (95.0-99.0); ABG PCO2 39 mmHg (32-45)
[2019-01-23 04:00] VITALS: BP 149/84
[2019-01-23 04:38] LABS: HEMATOCRIT 36.9 % (36-48); MEAN CORPUSCULAR HEMOGLOBIN 31.1 pg (27.0-33.0); MEAN CORPUSCULAR HGB CONC 32.6 g/dL (32.0-36.0); MEAN CORPUSCULAR VOLUME 95.6 fL (79-99); NUCLEATED RED BLOOD CELLS 0.1 % (0.0-0.19); PLATELET COUNT (AUTO) 226 K/uL (130-400); RED BLOOD CELL COUNT(AUTO) 3.86 MIL/uL (4.00-5.50); RED CELL DISTRIBUTION WIDTH 14.3 % (11.0-15.5); WHITE BLOOD COUNT (AUTO) 8.5 K/uL (4.8-10.8)
[2019-01-23 04:50] LABS: CREATININE 0.8 mg/dL (0.5-1.5); POTASSIUM 3.7 mmol/L (3.5-5.1)
[2019-01-23] MEDS: INSULIN R PO SSI SQ SCH ×4 (05:52→21:00)
[2019-01-23] MEDS: LEVOFLOXACIN 500 MG/D5W 100 ML 100 ML IV SCH (07:17)
[2019-01-23] MEDS: METHYLPREDNISOLONE SOD SUCC 40MG/ML 1ML IVP SCH (07:17)
[2019-01-23] MEDS: FAMOTIDINE/PF 20 MG/2 ML VIAL IV SCH ×2 (07:17→21:32)
[2019-01-23] MEDS: ENOXAPARIN SODIUM 80 MG/0.8 ML SQ SCH ×2 (07:17→21:40)
[2019-01-23] MEDS: CALCIUM CARBON 500MG CHEW TAB PO PRN ×2 (07:27→21:33)
[2019-01-23 07:32] VITALS: BP 141/73
--- NOTE | 2019-01-23 08:00 | NUR ---
ASSESSMENT PT IS AAOX4 DENIES CP DENIES SOB DENIES NV, BREATHING PATTERN IS EVEN AND UNLABORED, NO VISIBLE SIGNS OF DISTRESS NOTED. PATIENT DOES HAVE WHEEZING AND RHONCUS BREATH SOUNDS, BUT DENIES SHORTNESS OF BREATH. DR CABELLO ROUNDED AND SAW PATIENT. CALL LIGHT WITHIN REACH.
[2019-01-23 11:04] VITALS: BP 153/85
[2019-01-23 14:57] VITALS: BP 135/75
--- NOTE | 2019-01-23 18:00 | NUR ---
STATUS RESTING SITTING UP CHAIR. NO VISIBLE SIGNS OF DISTRESS NOTED, FAMILY AT BEDSIDE, CALL LIGHT WITHIN REACH.
[2019-01-23 20:12] VITALS: BP 125/77
[2019-01-24] VITALS (7 sets, daily range): BP systolic 109–139; BP diastolic 67–88
[2019-01-24] MEDS: IPRATROPIUM/ALBUTEROL SULFATE 3 ML SOLUTION IH SCH ×6 (01:54→21:54)
[2019-01-24] MEDS: GUAIFENESIN-CODEINE 5 ML SYRUP PO PRN ×2 (03:47→21:34)
[2019-01-24] MEDS: CALCIUM CARBON 500MG CHEW TAB PO PRN (06:28)
[2019-01-24] MEDS ORDERED: CALCIUM CARBON 500MG CHEW TAB PO PRN (06:30)
[2019-01-24] MEDS: INSULIN R PO SSI SQ SCH ×4 (06:34→20:18)
[2019-01-24] MEDS: LEVOFLOXACIN 500 MG/D5W 100 ML 100 ML IV SCH (07:18)
[2019-01-24] MEDS: ENOXAPARIN SODIUM 80 MG/0.8 ML SQ SCH ×2 (07:18→21:29)
[2019-01-24] MEDS: PREDNISONE 20 MG TABLET PO SCH (07:18)
[2019-01-24] MEDS: FAMOTIDINE/PF 20 MG/2 ML VIAL IV SCH ×2 (07:19→21:29)
--- NOTE | 2019-01-24 08:00 | NUR ---
ASSESSMENT PT IS AAOX4 DENIES CP DENIES SOB DENIES NV, ASSISTED UP TO CHAIR. BREATHING PATTERN IS EVEN AND UNLABORED, WHEEZES HEARD TO UPPER LUNG STEWART. NO VISIBLE SIGNS OF DISTRESS NOTED.
--- NOTE | 2019-01-24 09:25 | NUR ---
DR CABELLO ROUNDED PLAN FOR DC HOME TOMORROW
--- NOTE | 2019-01-24 12:30 | NUR ---
LUNCH SITTING UP IN CHAIR, EATING LUNCH. NO COMPLAINTS.
--- NOTE | 2019-01-24 19:22 | NUR ---
ASSESSMENT PATIENT IS RESTING IN CHAIR. IS AT BEDSIDE. PATIENTS HEART PILLOW IS ON LAP. AAOX4. NO COMPLAINTS OF PAIN AT THIS TIME. NO COMPLAINTS OR SIGNS OF SHORTNESS OF BREATH. NO DISTRESS NOTED. PATIENTS CALL LIGHT AND BEDSIDE TABLE IS WITHIN REACH. NO QUESTIONS, CONCERNS, OR NEEDS AT THIS TIME. PATIENT REINFORCED TO CALL FOR ANY NEEDS AND WHEN READY TO GO BACK TO BED. Addendum: 01/24/19 at 1934 by ROSAS THOMAS RN RN WRONG PATIENT PATIENT IS RESTING IN BED. NO COMPLAINTS OF PAIN AT THIS TIME. AAOX4. NO SIGNS OF SOB. NO SIGNS OF DISTRESS. PATIENTS CALL LIGHT WITHIN REACH. BEDSIDE TABLE WITHIN REACH. NO QUESTIONS, CONCERNS, NEEDS AT THIS TIME.
--- NOTE | 2019-01-25 | NUR ---
ASSESSMENT PATIENT IS RESTING IN BED. NO COMPLAINTS OF PAIN AT THIS TIME. NO SIGNS OF SHORTNESS OF BREATH. NO SIGNS OF DISTRESS. PATIENTS CALL LIGHT AND BEDSIDE TABLE ARE WITHIN REACH. ALL NEEDS MET AT THIS TIME.
[2019-01-25] MEDS: IPRATROPIUM/ALBUTEROL SULFATE 3 ML SOLUTION IH SCH ×7 (01:20→22:39)
[2019-01-25 04:21] VITALS: BP 116/63
[2019-01-25] MEDS: INSULIN R PO SSI SQ SCH ×4 (06:18→20:35)
[2019-01-25 07:42] VITALS: BP 129/78
[2019-01-25] MEDS: PREDNISONE 20 MG TABLET PO SCH (08:04)
[2019-01-25] MEDS: FAMOTIDINE/PF 20 MG/2 ML VIAL IV SCH ×2 (08:04→20:32)
[2019-01-25] MEDS: ENOXAPARIN SODIUM 80 MG/0.8 ML SQ SCH ×2 (08:04→20:32)
[2019-01-25] MEDS: LEVOFLOXACIN 500 MG/D5W 100 ML 100 ML IV SCH (08:04)
--- NOTE | 2019-01-25 08:18 | NUR ---
DR. Tiara CABELLO IN ROOM ASSESSING/SPEAKING WITH PT. RE:PLAN OF CARE. QUESTIONS ANSWERED BY DR. CABELLO.
[2019-01-25 11:38] VITALS: BP 119/74
--- NOTE | 2019-01-25 13:37 | NUR ---
DC PLAN VISITED WITH PATIENT SPOKE TO HER AT LENGTH REGARDING DC PLAN. PATIENT WAS TO GO HOME TODAY AND REFUSED SAID STILL WHEEZING. ASKED BENCHMARK SAID GOOD IDEA FOR HER TO GO TO [facility] FOR PULMONARY TOILETING. PATIENT WANTS TO TALK TO SPOUSE WILL CALL ME WITH DECISION. Addendum: 01/25/19 at 1340 by QUINTEN SALEH RN CM Amended: Links added.
--- NOTE | 2019-01-25 15:28 | NUR ---
RD Follow up Note Upon visit, Pt reports good appetite, no report of GI distress, Good PO intake (100%). Pt LBM 01/24/19. Pt monitored labs: BUN 19, Glu 156, Alb 2.9. RD to continue to monitor. Please notify RD as nutrition concerns arise. Thank you. Addendum: 01/25/19 at [address] Amended: Links added.
[2019-01-25 15:39] VITALS: BP 110/74
[2019-01-25] MEDS: BUDESONIDE 0.5 MG/2 ML INH IH SCH ×2 (18:00→19:36)
[2019-01-25 19:20] VITALS: BP 124/76
[2019-01-25 23:41] VITALS: BP 106/60
[2019-01-26] MEDS: IPRATROPIUM/ALBUTEROL SULFATE 3 ML SOLUTION IH SCH ×6 (02:26→21:15)
[2019-01-26 04:01] VITALS: BP 128/75
[2019-01-26] MEDS: INSULIN R PO SSI SQ SCH ×4 (06:08→20:34)
[2019-01-26] MEDS: BUDESONIDE 0.5 MG/2 ML INH IH SCH ×2 (06:55→19:05)
[2019-01-26 07:47] VITALS: BP 130/88
[2019-01-26] MEDS: ENOXAPARIN SODIUM 80 MG/0.8 ML SQ SCH (08:47)
[2019-01-26] MEDS: FAMOTIDINE 20MG TAB 20 MG TAB PO SCH ×2 (08:53→20:22)
[2019-01-26] MEDS: PREDNISONE 20 MG TABLET PO SCH (08:53)
[2019-01-26] MEDS: LEVOFLOXACIN 500 MG TABLET PO SCH (08:53)
[2019-01-26 11:12] VITALS: BP 124/75
--- NOTE | 2019-01-26 11:39 | NUR ---
DC PLAN VISITED WITH PATIENT. PATIENT AGREED TO GO TO SNF. SPOKE TO DR. CABELLO SAID OKAY TO SNF TO [facility]. SPOKE TO PATIENT GOT OKAY TO SEND REFERRAL. INFO SENT. LIZZIE CALLED SAID PATIENT NO LONGER HAS SECONDARY INSURANCE. CO PAY WOULD BE 170. SPOKE TO PATIENT SAID NO CAN NOT AFFORD COPAY SAID OKAY TO GOING HOME. LET NURSE KNOW TO LET DR. CABELLO KNOW PLAN NOW TO [facility]. Addendum: 01/26/19 at 1141 by QUINTEN SALEH RN CM Amended: Links added.
[2019-01-26 15:19] VITALS: BP 126/66
[2019-01-26] MEDS: ACETAMINOPHEN 325 MG TAB PO PRN (16:03)
[2019-01-26 19:28] VITALS: BP 111/60
[2019-01-26 23:38] VITALS: BP 105/65
[2019-01-27] MEDS: IPRATROPIUM/ALBUTEROL SULFATE 3 ML SOLUTION IH SCH ×3 (01:53→09:56)
[2019-01-27 03:54] VITALS: BP 117/73
[2019-01-27] MEDS: BUDESONIDE 0.5 MG/2 ML INH IH SCH (06:27)
[2019-01-27] MEDS: INSULIN R PO SSI SQ SCH (06:29)
[2019-01-27 07:39] VITALS: BP 140/79
[2019-01-27] MEDS: PREDNISONE 20 MG TABLET PO SCH (08:58)
[2019-01-27] MEDS: FAMOTIDINE 20MG TAB 20 MG TAB PO SCH (08:58)
[2019-01-27] MEDS: LEVOFLOXACIN 500 MG TABLET PO SCH (08:58)
--- NOTE | 2019-01-27 12:30 | NUR ---
PATIENT RIDE HAS ARRIVED TO TAKE HER HOME. PATIENT HAS BEEN READY FOR DISCHARGE. GAVE PATIENT EDUCATION ON MEDICATIONS, APPOINTMENTS ETC. PATIENT READY TO GO HOME.
== END 2019-01-27 12:24 | disposition home or self-care (01) | DRG 208 ==
LOC: EDH 07:15 → EDHIP 08:50 → 2BH 11:59 → 2AH 01-18 15:54
PROVIDERS: ADMIT Family Medicine; ATTEND Family Medicine
PROC: 0BH17EZ Insertion of Endotracheal Airway into Trachea, Via Natural or Artificial Opening (ICD-10-PCS; principal; 2019-01-16)
PROC: 5A1945Z Respiratory Ventilation, 24-96 Consecutive Hours (ICD-10-PCS; 2019-01-16)
DX: J96.01 Acute respiratory failure with hypoxia (principal); J44.1 Chronic obstructive pulmonary disease with (acute) exacerbation; J45.901 Unspecified asthma with (acute) exacerbation; J44.0 Chronic obstructive pulmonary disease with (acute) lower respiratory infection; J96.02 Acute respiratory failure with hypercapnia; K21.9 Gastro-esophageal reflux disease without esophagitis; D72.829 Elevated white blood cell count, unspecified; I95.9 Hypotension, unspecified; Z96.642 Presence of left artificial hip joint; E78.5 Hyperlipidemia, unspecified; R53.81 Other malaise; I10 Essential (primary) hypertension; Z96.653 Presence of artificial knee joint, bilateral; J20.9 Acute bronchitis, unspecified; M19.90 Unspecified osteoarthritis, unspecified site; E66.9 Obesity, unspecified; Z68.29 Body mass index [BMI] 29.0-29.9, adult; Z79.899 Other long term (current) drug therapy
CPT/HCPCS: 31500; 36415; 36600; 71045; 71275; 80048; 80053; 80076; 81001; 82435; 82803; 82947; 82948; 83605; 83735; 83880; 84100; 84132; 84295; 84484; 85018; 85025; 85027; 87040; 87804; 93005; 93306; 94002; 94003; 94640; 94644; 94664; 97039; 99291; G0378; J1650; J1815; J1956; J2250; J2405; J2543; J2704; J2920; J2930; J3475; J3480; J3490; Q9967

== ENCOUNTER 2019-02-06 17:58 | Inpatient (IN) | payer MEDICARE ==
[~2019-02-06] VITALS: Ht 160 cm; Wt 80.1 kg
[~2019-02-06 17:58] MED LIST changes: -ALBUTEROL SULFATE 0.083% 2.5 MG/3 ML INH IH ONE; +LORA10CA9 PO; -PANT40TA25 PO; +PRED20TA3 PO
[2019-02-06 18:38] LABS: BASOPHILS % (AUTO) 0.6 % (0.0-5.0); EOSINOPHILS % (AUTO) 5.7 % (0.0-8.0); MEAN CORPUSCULAR HEMOGLOBIN 31.6 pg (27.0-33.0); MEAN CORPUSCULAR HGB CONC 33.5 g/dL (32.0-36.0); MEAN CORPUSCULAR VOLUME 94.2 fL (79-99); NEUTROPHILS % (AUTO) 48.7 % (40.0-77.0); PLATELET COUNT (AUTO) 221 K/uL (130-400); RED BLOOD CELL COUNT(AUTO) 3.61 MIL/uL (4.00-5.50); RED CELL DISTRIBUTION WIDTH 14.8 % (11.0-15.5); WHITE BLOOD COUNT (AUTO) 6.4 K/uL (4.8-10.8)
[2019-02-06] MEDS ORDERED: METHYLPREDNISOLONE SOD SUCC 125MG/2ML VIAL ONE (18:50)
[2019-02-06] MEDS ORDERED: SODIUM CHLORIDE 0.9% 1000ML 1,000 ML IV ONE (18:50)
[2019-02-06 18:53] LABS: CREATININE 1.2 mg/dL (0.5-1.5); POTASSIUM 3.8 mmol/L (3.5-5.1)
[2019-02-06 18:58] LABS: BILIRUBIN,TOTAL 0.3 mg/dL (0.2-1.0); TOTAL PROTEIN, SERUM 6.2 g/dL (6.0-8.3)
[2019-02-06] MEDS ORDERED: LEVOFLOXACIN 750 MG/D5W 150 ML 150 ML ONE (19:06)
[2019-02-06] MEDS ORDERED: NITROGLYCERIN 0.4 MG SL TAB SL PRN (22:00)
[2019-02-06] MEDS ORDERED: SODIUM CHLORIDE 0.9% 10 ML VIAL IVP SCH (22:00)
[2019-02-06] MEDS ORDERED: LACTULOSE 20 GM/30 ML UDCUP PO PRN (22:00)
[2019-02-06] MEDS ORDERED: ZOLPIDEM TARTRATE 5 MG TAB PO PRN (22:00)
[2019-02-06] MEDS ORDERED: IPRATROPIUM/ALBUTEROL SULFATE 3 ML SOLUTION IH ONE (22:00)
[2019-02-06] MEDS ORDERED: ACETAMINOPHEN 325 MG TAB PO PRN ×2 (22:00)
[2019-02-06] MEDS ORDERED: POTASSIUM CHLORIDE 10% ELIXIR 20 MEQ/15 ML UDCUP PO PRN (22:00)
[2019-02-06] MEDS ORDERED: CLONIDINE HCL 0.1 MG TABLET PO PRN (22:00)
[2019-02-06] MEDS ORDERED: GUAIFENESIN SUGAR-FREE 100 MG/5 ML UDCUP PO PRN (22:00)
[2019-02-06] MEDS ORDERED: DiphenhydrAMINE HCL 50 MG/ML VIAL IVP PRN (22:00)
[2019-02-06] MEDS ORDERED: ONDANSETRON HCL 4 MG/2 ML VIAL IVP PRN (22:00)
[2019-02-06] MEDS ORDERED: DIPHENHYDRAMINE HCL 25 MG CAPSULE PO PRN (22:00)
[2019-02-06] MEDS ORDERED: LIDOCAINE HCL-MPF 1% 2ML VIAL IJ PRN (22:00)
[2019-02-06] MEDS ORDERED: POTASSIUM CHLORIDE 20MEQ/100ML 100 ML IV PRN (22:00)
[2019-02-06] MEDS ORDERED: MAG HYDROX/AL HYDROX/SIMETH ES 30 ML SUSP UDCUP PO PRN (22:00)
[2019-02-06] MEDS: IPRATROPIUM/ALBUTEROL SULFATE 3 ML SOLUTION IH SCH (22:35)
[2019-02-07] VITALS (7 sets, daily range): BP systolic 119–154; BP diastolic 50–83
--- NOTE | 2019-02-07 00:21 | NUR ---
COPD Pt came in from [place],states she had an asthma attack last week,she went to the doctor and ordered for her to be admitted.Pt.s brought in a perfume and air spray and sprayedthe room with strong odors.Pts states they are used to it and he wants his room smelling good.Instructed re possible triggers for asthma attacks,she did not seem bothered about it.
[2019-02-07] MEDS ORDERED: PANT40TA25 PO (01:12)
[2019-02-07] MEDS ORDERED: AMOX-429 PO (01:12)
[2019-02-07] MEDS ORDERED: MONT10TA24 PO (01:12)
[2019-02-07] MEDS ORDERED: FLU VACC QS2019-20 36MOS UP/PF 60 MCG/0.5 ML ML IM SCH (06:30)
[2019-02-07] MEDS: IPRATROPIUM/ALBUTEROL SULFATE 3 ML SOLUTION IH SCH ×4 (07:02→23:27)
[2019-02-07] MEDS: FAMOTIDINE 20MG TAB 20 MG TAB PO SCH ×2 (08:04→23:32)
[2019-02-07] MEDS: METHYLPREDNISOLONE SOD SUCC 125MG/2ML VIAL IVP SCH (08:04)
[2019-02-07] MEDS ORDERED: IBUPROFEN 800 MG TAB PO PRN (09:30)
--- NOTE | 2019-02-07 11:30 | NUR ---
Patient ambulated with PT and O2 saturations 88% on RA with ambulation. Patient asymptomatic.
[2019-02-07] MEDS: LORATADINE 10 MG TABLET PO SCH (12:29)
[2019-02-07] MEDS ORDERED: FLU VACC QS2019-20 36MOS UP/PF 60 MCG/0.5 ML ML IM ONE (21:02)
[2019-02-08 03:45] VITALS: BP 107/67
[2019-02-08] MEDS: IPRATROPIUM/ALBUTEROL SULFATE 3 ML SOLUTION IH SCH ×4 (06:14→23:26)
[2019-02-08 08:00] VITALS: BP 131/86
[2019-02-08] MEDS: FAMOTIDINE 20MG TAB 20 MG TAB PO SCH ×2 (08:16→21:33)
[2019-02-08] MEDS: MONTELUKAST SODIUM 10 MG TAB PO SCH (08:16)
[2019-02-08] MEDS: METHYLPREDNISOLONE SOD SUCC 125MG/2ML VIAL IVP SCH (08:16)
[2019-02-08] MEDS: LORATADINE 10 MG TABLET PO SCH (08:16)
[2019-02-08 08:51] LABS: HEMATOCRIT 34.8 % (36-48); MEAN CORPUSCULAR HEMOGLOBIN 31.3 pg (27.0-33.0); MEAN CORPUSCULAR HGB CONC 33.2 g/dL (32.0-36.0); MEAN CORPUSCULAR VOLUME 94.4 fL (79-99); PLATELET COUNT (AUTO) 227 K/uL (130-400); RED BLOOD CELL COUNT(AUTO) 3.69 MIL/uL (4.00-5.50); WHITE BLOOD COUNT (AUTO) 11.4 K/uL (4.8-10.8)
[2019-02-08 09:00] LABS: CREATININE 0.7 mg/dL (0.5-1.5); POTASSIUM 3.4 mmol/L (3.5-5.1)
[2019-02-08] MEDS ORDERED: LEVOFLOXACIN 750 MG/D5W 150 ML 150 ML IV SCH (09:00)
--- NOTE | 2019-02-08 09:00 | NUR ---
INIITAL MET W PTI, ON RM AIR, COMFORTABLE, AT SIDE OF BED PT STATES LIVES W SPOUSE MARIAELENA WHO WILL PROVIDE TRANSPORT HOME, [facility] HAS OXYGEN AND NEBULIZED AT [place], USES [facility] THE NEBS AND OXYGEN WERER NOT RELIEVING THE SHORTNESS OF BREATH. SEES DR. CABELLO REGULARLY, FOLLOWS WITH HIM CLOSELY. HOME IS SAFE AND ACCESSIBLE AND THAT SHE USES A WALKER, OTHER IS INDP OF ADLS, HAS A PROVIDER 4 HRS/DAY, AND HH THROUGH DR. CABELLO- [place]- TO CHECK BP AND ORGANIZE THE MEDICATIONS DCP IS HOME. Addendum: 02/09/19 at 1434 by RADHA STARKS RN Amended: Links added.
[2019-02-08] MEDS: LISINOPRIL 40 MG TABLET PO SCH (09:13)
--- NOTE | 2019-02-08 11:30 | NUR ---
Patient ambulated without O2 and O2 sat 97% on RA. Pt in no distress
[2019-02-08 12:03] VITALS: BP 140/90
[2019-02-08] MEDS: POTASSIUM CHLORIDE 20 MEQ ERTAB PO PRN ×2 (14:33→16:49)
[2019-02-08 16:40] VITALS: BP 137/78
[2019-02-08 20:00] VITALS: BP 154/81
[2019-02-09] VITALS: BP 125/75
[2019-02-09 04:00] VITALS: BP 113/68
[2019-02-09 07:00] VITALS: BP 145/87
[2019-02-09] MEDS: IPRATROPIUM/ALBUTEROL SULFATE 3 ML SOLUTION IH SCH ×2 (07:05→11:23)
[2019-02-09] MEDS: MONTELUKAST SODIUM 10 MG TAB PO SCH (08:37)
[2019-02-09] MEDS: FAMOTIDINE 20MG TAB 20 MG TAB PO SCH (08:37)
[2019-02-09] MEDS: LORATADINE 10 MG TABLET PO SCH (08:38)
[2019-02-09] MEDS: LISINOPRIL 40 MG TABLET PO SCH (08:38)
[2019-02-09] MEDS: METHYLPREDNISOLONE SOD SUCC 125MG/2ML VIAL IVP SCH (08:39)
[2019-02-09 11:00] VITALS: BP 136/86
--- NOTE | 2019-02-09 14:00 | NUR ---
DISCHARGED HOME INSTRUCTED TO FOLLOW UP WITH ON WEDNESDAY, AND TO CALL OFFICE FOR APPOINTMENT. INSTRUCTED TO SEEK EMERGENCY MEDICAL ASSISTANCE IF SHE EXPERIENCES CHEST PAIN, SHORTNESS OF BREATH, OR FEVER 101.0. IV DISCONTINUED, INTACT. ALL BELONGINGS TAKEN. Addendum: 02/09/19 at 1559 by ORAL DOMÍNGUEZ RN RN AAOX3, DENIES ANY DISTRESS.
== END 2019-02-09 14:35 | disposition home or self-care (01) | DRG 191 ==
LOC: EDH 17:58 → EDHIP 19:18 → 3DH 02-07 00:55
PROVIDERS: ADMIT Family Medicine; ATTEND Family Medicine
DX: J44.1 Chronic obstructive pulmonary disease with (acute) exacerbation (principal); J96.10 Chronic respiratory failure, unspecified whether with hypoxia or hypercapnia; I10 Essential (primary) hypertension; E78.5 Hyperlipidemia, unspecified; Z96.642 Presence of left artificial hip joint; Z96.653 Presence of artificial knee joint, bilateral; Z23 Encounter for immunization
CPT/HCPCS: 36415; 71046; 80048; 80053; 85025; 85027; 94640; 94664; 94667; 94668; 97039; G0008; G0378; J1956; J2930; J7030; Q2035

== ENCOUNTER 2019-03-11 23:07 | Emergency (ER) | payer MEDICARE ==
[~2019-03-11 23:07] MED LIST changes: -FAMO20TA8 PO; +MONT10TA24 PO; +PANT40TA25 PO; -PRED20TA3 PO
[2019-03-11] MEDS ORDERED: ONDANSETRON HCL 4 MG/2 ML VIAL ONE (23:37)
[2019-03-11] MEDS ORDERED: SODIUM CHLORIDE 0.9% 1000ML 1,000 ML IV ONE (23:42)
[2019-03-11] MEDS ORDERED: SODIUM CHLORIDE 0.9% 500ML 500 ML IV ONE (23:42)
[2019-03-11 23:43] LABS: APPEARANCE,URINE Clear (CLEAR); BILIRUBIN,URINE Negative (NEGATIVE); COLOR,URINE Yellow (YELLOW); GLUCOSE, URINE (UA) Negative (NEGATIVE); KETONES,URINE Negative (NEGATIVE); LEUKOCYTE ESTERASE ,URINE Small (NEGATIVE); NITRATE,URINE Negative (NEGATIVE); OCCULT BLOOD,URINE Small (NEGATIVE); PH,URINE 5.5 (5.0-8.0); PROTEIN,URINE Trace mg/dL (NEGATIVE); UROBILINOGEN,URINE 0.2 mg/dL (0.2-1.0)
[2019-03-11 23:47] LABS: BASOPHILS % (AUTO) 0.9 % (0.0-5.0); EOSINOPHILS % (AUTO) 1.8 % (0.0-8.0); HEMATOCRIT 39.5 % (36-48); LYMPHOCYTES % (AUTO) 24.9 % (21.0-51.0); MEAN CORPUSCULAR HEMOGLOBIN 29.8 pg (27.0-33.0); MEAN CORPUSCULAR VOLUME 90.4 fL (79-99); NEUTROPHILS % (AUTO) 65.4 % (40.0-77.0); PLATELET COUNT (AUTO) 260 K/uL (130-400); RED BLOOD CELL COUNT(AUTO) 4.37 MIL/uL (4.00-5.50); RED CELL DISTRIBUTION WIDTH 14.5 % (11.0-15.5); WHITE BLOOD COUNT (AUTO) 11.1 K/uL (4.8-10.8)
[2019-03-11 23:52] LABS: CREATININE 0.6 mg/dL (0.5-1.5); POTASSIUM 3.7 mmol/L (3.5-5.1)
[2019-03-11 23:56] LABS: BACTERIA,URINE Rare /HPF (None Seen); MUCUS,URINE Moderate LPF (None Seen); RBC,URINE 0-1 /HPF (0-1); SQUAMOUS EPITHELIAL CELL,UR Moderate /HPF (0-2)
[2019-03-12 00:03] LABS: ALBUMIN 3.5 g/dL (3.5-5.0); BILIRUBIN,TOTAL 0.3 mg/dL (0.2-1.0); TOTAL PROTEIN, SERUM 7.2 g/dL (6.0-8.3)
[2019-03-12] MEDS ORDERED: DICYCLOMINE HCL 10 MG/ML 2ML AMP IM ONE (02:16)
[2019-03-12] MEDS ORDERED: LIDOCAINE HCL 2% VISCOUS 15 ML UDCUP ONE (03:07)
[2019-03-12] MEDS ORDERED: MAG HYDROX/AL HYDROX/SIMETH ES 30 ML SUSP UDCUP ONE (03:07)
== END 2019-03-12 03:16 | disposition home or self-care (01) ==
LOC: EDH 23:07
DX: J44.9 Chronic obstructive pulmonary disease, unspecified (principal); I10 Essential (primary) hypertension; R11.2 Nausea with vomiting, unspecified; E78.5 Hyperlipidemia, unspecified
CPT/HCPCS: 36415; 80053; 81001; 83690; 84484; 85025; 93005; 96361; 96372; 96374; 99285; J0500; J2405; J7030; J7040

== ENCOUNTER 2023-02-04 11:04 | Emergency (ER) | payer MEDICARE ==
[~2023-02-04] VITALS: Ht 160 cm; Wt 84.4 kg
[~2023-02-04 11:04] MED LIST changes: -LISI40TA4 PO; +LISI40TA9 PO; +MONT-39 PO; -MONT10TA24 PO; -PANT40TA25 PO; +PANT40TA54 PO
[2023-02-04 12:26] LABS: BASOPHILS # (AUTO) 0.05 K/uL (0.00-0.20); BASOPHILS % (AUTO) 0.6 % (0.0-5.0); EOSINOPHILS # (AUTO) 0.14 K/uL (0.00-0.70); EOSINOPHILS % (AUTO) 1.7 % (0.0-8.0); HEMATOCRIT 37.5 % (36-48); IMMATURE GRANULOCYTE ABSOLUTE 0.02 K/uL (0-1); LYMPHOCYTES # (AUTO) 3.4 K/uL (1.0-4.8); LYMPHOCYTES % (AUTO) 41.4 % (21.0-51.0); MEAN CORPUSCULAR HEMOGLOBIN 29.5 pg (27.0-33.0); MEAN CORPUSCULAR HGB CONC 31.5 g/dL (32.0-36.0); MEAN CORPUSCULAR VOLUME 93.8 fL (79-99); MONOCYTES # (AUTO) 0.5 K/uL (0.1-1.0); MONOCYTES % (AUTO) 6.6 % (3.0-13.0); NEUTROPHILS % (AUTO) 49.5 % (40.0-77.0); PLATELET COUNT (AUTO) 225 K/uL (130-400); RED CELL DISTRIBUTION WIDTH 14.6 % (11.0-15.5); WHITE BLOOD COUNT (AUTO) 8.2 K/uL (4.8-10.8)
[2023-02-04 12:37] LABS: CREATININE 0.8 mg/dL (0.5-1.5); POTASSIUM 3.9 mmol/L (3.5-5.1)
[2023-02-04 12:42] LABS: ALBUMIN 3.8 g/dL (3.5-5.0); BILIRUBIN,TOTAL 0.6 mg/dL (0.2-1.0); TOTAL PROTEIN, SERUM 7.5 g/dL (6.0-8.3)
[2023-02-04] MEDS ORDERED: CLONIDINE HCL 0.2 MG TABLET PO ONE (14:30)
[2023-02-04 15:54] VITALS: BP 111/68; PULSE 80; RESP 16; O2SAT 97
[2023-02-04] MEDS ORDERED: ACETAMINOPHEN 325 MG TAB ONE (15:56)
[2023-02-04] MEDS ORDERED: ACETAMINOPHEN 325 MG TAB PO ONE (16:00)
[2023-02-10] MEDS ORDERED: AMOX1TAB15 PO (14:27)
== END 2023-02-04 16:39 | disposition home or self-care (01) ==
LOC: EDH 11:04
DX: I11.0 Hypertensive heart disease with heart failure (principal); I50.9 Heart failure, unspecified; R07.89 Other chest pain; Z79.899 Other long term (current) drug therapy
CPT/HCPCS: 36415; 71045; 80053; 83880; 84484; 85025; 93005

== ENCOUNTER 2024-04-28 19:14 | Emergency (ER) | payer MEDICARE ==
[~2024-04-28] VITALS: Ht 149.9 cm; Wt 65.8 kg
[~2024-04-28 19:14] MED LIST changes: +AMOX1TAB15 PO; -IPRA4AER IH
--- NOTE | 2024-04-28 19:28 | NUR ---
UA CUP PROVIDED
--- NOTE | 2024-04-28 20:13 | ERN ---
General Chief Complaint: Dizzy/Light Headed Stated Complaint: PAIN, HEADACHE, DIZZY Time Seen by MD: 19:15 Source: patient History of Present Illness Initial Comments Patient is a 78-year-old female coming in to be evaluated for flu-like symptoms. Per patient these symptoms began three days ago. Patient was concerned because she has a history of asthma and came to be evaluated. Patient also states that she felt a little dizzy within the symptoms 1st initiated long with a she has been having nasal congestion and body aches. Allergies: Coded Allergies: No Known Drug Allergies (Unverified Allergy, Unknown, 01/06/17) Home Meds Active Scripts Amoxicillin/Potassium Clav (Amox Tr-K Clv 500-125 mg Tab) 500 Mg-125 Mg Tablet, 1 EACH PO BID, #10 TAB 0 Refills Prov:FARHAN APPIAH EUCLID OPERATOR 02/10/23 Reported Medications Pantoprazole Sodium (Pantoprazole Sodium) 40 Mg Tablet.dr, 40 MG PO AM, TAB 02/07/19 Montelukast Sodium (Montelukast Sodium) 10 Mg Tablet, 10 MG PO AM, TAB 02/07/19 Loratadine (Loratadine) 10 Mg Capsule, 10 MG PO DAILY, CAP 01/16/19 Albuterol Sulfate (Proair Hfa) 8.5 Gm Hfa.aer.ad, 8.5 GM IH Q4HPRN PRN for SHORTNESS OF BREATH 11/26/18 Ibuprofen (Ibuprofen 800 mg Tab) 800 Mg Tab, 800 MG PO Q8HPRN PRN for PAIN, TAB 11/14/18 Lisinopril (Lisinopril) 40 Mg Tablet, 40 MG PO DAILY, TAB 01/07/17 Past Medical History Past Medical History: Diabetes-Type II, High Cholesterol, Hypertension Medical History Other: Pre-DM Past Surgical History: Other Surgical History Other: BKR, LEFT HIP, EYE SURGERY Social History Social History: Negative, Lives with family ROS Dictation CONSTITUTIONAL: chills, fever, no weakness, no diaphoresis, malaise. HEAD/FACE: No signs of trauma. EENT: No eye pain, no blurred vision, no tearing, no double vision, no ear pain, no ear discharge, no nose pain, no nasal congestion, no throat pain, no throat swelling, no mouth pain. RESPIRATORY: No cough, no orthopnea, no SOB, no stridor, no wheezing. CARDIOVASCULAR: No chest pain, no edema, no palpitations, no syncope. GASTROINTESTINAL/ABDOMINAL: No abdominal pain, no constipation, no diarrhea, no nausea, no vomiting. GENITOURINARY: No abnormal discharge, no dysuria, no frequent urination, no hematuria. No complaints of pain in the genitals. MUSCULOSKELETAL: No back pain, no gout, no joint pain, no joint swelling, no muscle pain, no muscle stiffness, no neck pain. INTEGUMENTARY: No change in color, no change in hair/nails, no dryness, no lesion, no lumps, no rash. NEUROLOGICAL/PSYCH: No anxiety, not depressed, no emotional problem, no headache, no numbness, no pre-existing deficit, no history of seizures, no tremors, no weakness. HEMATOLOGIC/LYMPHATIC: Not anemic, no history of blood clots, no apparent b leeding, no bruising, glands not swollen. All Systems Negative, Except as Noted. Physical Exam Physical Exam Dictation VITAL SIGNS: Reviewed. GENERAL APPEARANCE: Alert, oriented x3, no acute distress, obese. HEAD AND FACE: Non-traumatic. EYES: PERRL, pink conjunctivas, eyelid no trauma, anterior chamber clear. EARS: Pinnas intact and no signs of trauma or erythema. Ear canals clear and no discharge. TMs no erythema. NOSE: No discharge, no bleeding. OROPHARYNX: Mouth normal, teeth no caries, tongue pink. Pharynx clear, no erythema. Tonsils no exudates, no abscesses noted. Mucous membrane moist. NECK: Supple, non-tender, no thyromegaly, no masses, no JVD, no bruits. BREAST: Deferred. CHEST: No tenderness, no crepitus, no paradoxical movement, no retractions. LUNGS: Clear, well-ventilated, symmetric, no rales, no wheezing, no rhonchi, no stridor, good breath sounds bilaterally. HEART: Regular rate, regular rhythm, no murmur, no gallops. VASCULAR: No peripheral edema. ABDOMEN: Soft, positive bowel sounds, nondistended, no guarding, nontender, no rebound, no masses no hepatomegaly, no splenomegaly, no Rizzo's sign, no hernias. RECTAL: Deferred. GENITAL: Deferred. NEUROLOGICAL: Normal speech, gross motor function intact, gross sensory function intact. MUSCULOSKELETAL: Neck nontender, full range of motion, back nontender, full ra nge of motion. EXTREMITIES: Nontender, full range of motion. SKIN: Color pink, dry, no turgor, no rash, no lacerations, no abrasions, no contusions. LYMPHATICS: Deferred. Results Laboratory and Microbiology Lab and Micro Result Laboratory Tests Test 04/28/24 20:24 04/28/24 20:30 04/28/24 22:22 Influenza Type A Antigen Negative For Type A Influenza Type B Antigen Negative For Type B SARS-CoV-2, RNA, NAAT NEGATIVE SARS CoV-2 Group A Streptococcus Rapid negative (NEGATIVE) White Blood Count 9.1 K/uL (4.8-10.8) Red Blood Count 3.72 MIL/uL (4.00-5.50) L Hemoglobin 11.8 g/dL (12.0-16.0) L Hematocrit 36.0 % (36-48) Mean Corpuscular Volume 96.8 fL (79-99) Mean Corpuscular Hemoglobin 31.7 pg (27.0-33.0) Mean Corpuscular Hemoglobin Concent 32.8 g/dL (32.0-36.0) Red Cell Distribution Width 13.1 % (11.0-15.5) Platelet Count 237 K/uL (130-400) Mean Platelet Volume 11.3 fL (7.5-10.5) H Immature Granulocyte % (Auto) 0.2 % (0-1) Neutrophils (%) (Auto) 47.0 % (40.0-77.0) Lymphocytes (%) (Auto) 39.4 % (21.0-51.0) Monocytes (%) (Auto) 7.3 % (3.0-13.0) Eosinophils (%) (Auto) 5.1 % (0.0-8.0) Basophils (%) (Auto) 1.0 % (0.0-5.0) Neutrophils # (Auto) 4.3 K/uL (1.8-7.7) Lymphocytes # (Auto) 3.6 K/uL (1.0-4.8) Monocytes # (Auto) 0.7 K/uL (0.1-1.0) Eosinophils # (Auto) 0.46 K/uL (0.00-0.70) Basophils # (Auto) 0.09 K/uL (0.00-0.20) Absolute Immature Granulocyte (auto 0.02 K/uL (0-1) Nucleated Red Blood Cells 0.0 % (0.0-0.19) Sodium Level 146 mmol/L (136-145) H Potassium Level 4.2 mmol/L (3.5-5.1) Chloride Level 109 mmol/L (101-111) Carbon Dioxide Level 29 mmol/L (21-32) Blood Urea Nitrogen 16 mg/dL (7-18) Creatinine 0.8 mg/dL (0.5-1.0) Glomerular Filtration Rate Calc 75 mL/min (>90) Random Glucose 110 mg/dL (70-105) H Total Calcium 9.4 mg/dL (8.5-10.1) Urine Color YELLOW (YELLOW) Urine Appearance CLEAR (CLEAR) Urine pH 5.5 (5.0-8.0) Urine Specific Barco 1.024 (1.001-1.031) Urine Protein 10 mg/dL (NEGATIVE) H Urine Glucose (UA) NEGATIVE mg/dL (NEGATIVE) Urine Ketones NEGATIVE mg/dL (NEGATIVE) Urine Occult Blood NEGATIVE (NEGATIVE) Urine Nitrate NEGATIVE (NEGATIVE) Urine Bilirubin NEGATIVE mg/dL (NEGATIVE) Urine Urobilinogen 0.2 mg/dL (0.2-1.0) Urine Leukocyte Esterase 250 Mook/uL (NEGATIVE) H Urine RBC 2-5 /HPF (0-1) H Urine WBC 11-25 /HPF (0-1) H Urine Squamous Epithelial Cells FEW /HPF (0-2) Urine Non-Squamous Epithelial Cells 1 /HPF (0-2) Urine Calcium Oxalate Crystals RARE /LPF (None Seen) Urine Bacteria RARE /HPF (None Seen) Labs Reviewed?: Yes MDM MDM: DIFFERENTIAL DIAGNOSIS: UTI, CONSTIPATION, URI, FLU, COVID PATIENT IS A 78-YEAR-OLD FEMALE COMING IN TO BE EVALUATED FOR URI SYMPTOMS. PER PATIENT HE HAS BEEN FEELING HOT AND HAS FELT LITTLE DIZZY. UPON EVALUATION WITH LABORATORY WORKUP PATIENT WAS POSITIVE FOR URINARY TRACT INFECTION. PATIENT ALSO PRESENTED WITH MILD DEHYDRATION WAS HYDRATED WITH IV FLUIDS. PATIENT WILL BE DISCHARGED WITH STABLE CONDITION WITH A DIAGNOSIS OF URINARY TRACT INFECTION. ANTIBIOTICS WILL BE PROVIDED I ADVISED HER APPROPRIATE FOLLOW UP PCP IN 1-2 DAYS TO CONTINUE MONITORING SYMPTOMS IF ANY SHOULD BE PRESENT ED Course Orders Procedure Category Date Status Time Cbc With Differential LAB 04/28/24 Complete 20:10 Basic Metabolic Panel LAB 04/28/24 Complete 20:10 Urinalysis LAB 04/28/24 Complete W/Microscopic 20:10 Covid Rna Naat LAB 04/28/24 Complete 20:10 Influenza Type A & B, LAB 04/28/24 Complete Rapid 20:10 Rapid (Group A Strep) LAB 04/28/24 Complete 20:10 Dexamethasone 4mg/Ml PHA 04/28/24 Complete 1ml Vial (Dexametha 20:30 0.9%Nacl 1000ml (Ns PHA 04/28/24 Complete 1000ml) 20:30 Culture Urine JACQUE 04/28/24 In Process 23:16 Current Medications Medications (Trade) Dose Ordered Sig/Rhiannon Route PRN Reason Start Time Stop Time Status Last Admin Dose Admin Dexamethasone Sodium Phosphate (dexaMETHasone 4MG/ML 1ML VIAL) 4 mg ONCE ONCE IM 04/28/24 20:30 04/28/24 20:31 DC 04/28/24 22:26 Sodium Chloride 1,000 ml @ 0 mls/hr ONCE ONCE IV 04/28/24 20:30 04/28/24 20:31 DC 04/28/24 22:27 Vital Signs Date Time Temp Pulse Resp B/P (MAP) Pulse Ox O2 Delivery O2 Flow Rate FiO2 04/28/24 21:55 97.9 74 18 142/81 98 Room Air* 0 21 04/28/24 19:16 97.9 87 16 166/97 98 Room Air DX & DISP Disposition: Discharge Departure Impression: Primary Impression: UTI (urinary tract infection) Condition: Stable Scripts Cephalexin Monohydrate (Keflex) 500 Mg Cap 1 CAP PO TID for 10 Days, #30 CAP 0 Refills Prov: KARINA ESPARZA MD 04/28/24 Additional Instructions: FOLLOW-UP WITH PRIMARY CARE PROVIDER IN 1 TO 2 DAYS. TAKE MEDICATIONS DIRECTED HERE IN THE EMERGENCY ROOM. OKAY TO CONTINUE HOME MEDICATIONS UNLESS OTHERWISE DISCUSSED DURING YOUR VISIT IN THE EMERGENCY ROOM TODAY. RETURN TO YOUR NEAREST EMERGENCY ROOM IF SYMPTOMS WORSEN OR IF THERE IS NO IMPROVEMENT. CALL 911 IF YOU NEED IMMEDIATE ASSISTANCE. TAKE TYLENOL [id number] NEEDED AND IF NO CONTRAINDICATIONS ARE PRESENT. INCREASE ORAL HYDRATION. A WOUND CULTURE OR URINE CULTURE WAS ORDERED HERE IN THE EMERGENCY ROOM DEPARTMENT PLEASE FOLLOW-UP WITH PRIMARY CARE PROVIDER AND ADVISE THEM TO GET REPEAT PORTS FROM OUR FACILITY. IF YOU HAD ANY ROSANA WRAP/SPLINTS THAT WERE APPLIED HERE, PLEASE DO NOT REMOVE THEM UNTIL YOU SEE YOUR PRIMARY CARE OR SPECIALTY. REFERRALS: Referrals: FATOU CABELLO Jr., MD (PCP) Time of Disposition: 23:31 KARINA ESPARZA MD Apr 28, 2024 20:13
--- NOTE | 2024-04-28 20:28 | NUR ---
COVID, FLU AND STREP SWABS COLLECTED AND SENT
[2024-04-28 20:38] LABS: BASOPHILS # (AUTO) 0.09 K/uL (0.00-0.20); EOSINOPHILS # (AUTO) 0.46 K/uL (0.00-0.70); EOSINOPHILS % (AUTO) 5.1 % (0.0-8.0); IMMATURE GRANULOCYTE ABSOLUTE 0.02 K/uL (0-1); LYMPHOCYTES # (AUTO) 3.6 K/uL (1.0-4.8); LYMPHOCYTES % (AUTO) 39.4 % (21.0-51.0); MEAN CORPUSCULAR HEMOGLOBIN 31.7 pg (27.0-33.0); MEAN CORPUSCULAR HGB CONC 32.8 g/dL (32.0-36.0); MEAN CORPUSCULAR VOLUME 96.8 fL (79-99); MONOCYTES # (AUTO) 0.7 K/uL (0.1-1.0); MONOCYTES % (AUTO) 7.3 % (3.0-13.0); NEUTROPHILS # (AUTO) 4.3 K/uL (1.8-7.7); PLATELET COUNT (AUTO) 237 K/uL (130-400); RED BLOOD CELL COUNT(AUTO) 3.72 MIL/uL (4.00-5.50); RED CELL DISTRIBUTION WIDTH 13.1 % (11.0-15.5); WHITE BLOOD COUNT (AUTO) 9.1 K/uL (4.8-10.8)
[2024-04-28 20:47] LABS: CREATININE 0.8 mg/dL (0.5-1.0); POTASSIUM 4.2 mmol/L (3.5-5.1)
[2024-04-28 20:51] LABS: RAPID GROUP A STREP negative (NEGATIVE); SARS-CoV-2, RNA, NAAT NEGATIVE SARS CoV-2 (NEGATIVE)
[2024-04-28 21:00] LABS: INFLUENZA TYPE A Negative For Type A (NEGATIVE); INFLUENZA TYPE B Negative For Type B (NEGATIVE)
[2024-04-28 21:55] VITALS: BP 142/81; PULSE 74; RESP 18; TEMP 97.9; O2SAT 98
[2024-04-28] MEDS: dexaMETHasone SOD PHOSPHATE 4 MG/ML 1ML VIAL IM ONE (22:26)
[2024-04-28] MEDS: 0.9%NACL 1000ML 1,000 ML IV ONE (22:27)
[2024-04-28 22:56] LABS: APPEARANCE,URINE CLEAR (CLEAR); BILIRUBIN,URINE NEGATIVE (NEGATIVE); COLOR,URINE YELLOW (YELLOW); GLUCOSE, URINE (UA) NEGATIVE (NEGATIVE); KETONES,URINE NEGATIVE (NEGATIVE); LEUKOCYTE ESTERASE ,URINE 250 Leu/uL (NEGATIVE); NITRATE,URINE NEGATIVE (NEGATIVE); OCCULT BLOOD,URINE NEGATIVE (NEGATIVE); PH,URINE 5.5 (5.0-8.0); PROTEIN,URINE 10 mg/dL (NEGATIVE); UROBILINOGEN,URINE 0.2 mg/dL (0.2-1.0)
[2024-04-28 23:21] LABS: BACTERIA,URINE RARE /HPF (None Seen); CALCIUM OXALATE CRYSTALS,UR RARE /LPF (None Seen); MUCUS,URINE RARE LPF (None Seen); NON-SQUAMOUS EPITHELIAL CELL 1 /HPF (0-2); SQUAMOUS EPITHELIAL CELL,UR FEW /HPF (0-2)
[2024-04-28] MEDS ORDERED: CEPH500B PO (23:32)
== END 2024-04-28 23:44 | disposition home or self-care (01) ==
LOC: EDH 19:16
DX: N39.0 Urinary tract infection, site not specified (principal); E11.9 Type 2 diabetes mellitus without complications; E78.00 Pure hypercholesterolemia, unspecified; I10 Essential (primary) hypertension; J45.909 Unspecified asthma, uncomplicated; Z79.899 Other long term (current) drug therapy; Z98.890 Other specified postprocedural states; Z20.822 Contact with and (suspected) exposure to COVID-19
CPT/HCPCS: 99283; 87635; 80048; 85025; 87086; 87880; 87804 ×2; 82948; 81001; 36415; 96372; J1100; J7030

== ENCOUNTER 2024-10-18 21:52 | Emergency (ER) | payer MEDICARE, OTHER ==
[~2024-10-18] VITALS: Ht 160 cm; Wt 66.7 kg
[~2024-10-18 21:52] MED LIST changes: +CEPH500B PO; +LISI40TA15 PO; -LISI40TA9 PO
[2024-10-18 21:56] VITALS: TEMP 97.5
[2024-10-18 22:18] LABS: RAPID GROUP A STREP negative (NEGATIVE)
[2024-10-18 22:26] LABS: SARS-CoV-2, RNA, NAAT NEGATIVE SARS CoV-2 (NEGATIVE)
[2024-10-18 22:28] LABS: INFLUENZA TYPE B Negative For Type B (NEGATIVE)
[2024-10-18 22:30] LABS: BASOPHILS # (AUTO) 0.06 K/uL (0.00-0.20); EOSINOPHILS # (AUTO) 0.18 K/uL (0.00-0.70); HEMATOCRIT 36.4 % (36-48); IMMATURE GRANULOCYTE ABSOLUTE 0.01 K/uL (0-1); LYMPHOCYTES # (AUTO) 2.4 K/uL (1.0-4.8); LYMPHOCYTES % (AUTO) 39.8 % (21.0-51.0); MEAN CORPUSCULAR HEMOGLOBIN 31.1 pg (27.0-33.0); MEAN CORPUSCULAR HGB CONC 32.7 g/dL (32.0-36.0); MONOCYTES # (AUTO) 0.6 K/uL (0.1-1.0); MONOCYTES % (AUTO) 9.2 % (3.0-13.0); NEUTROPHILS # (AUTO) 2.8 K/uL (1.8-7.7); NEUTROPHILS % (AUTO) 46.8 % (40.0-77.0); PLATELET COUNT (AUTO) 227 K/uL (130-400); RED BLOOD CELL COUNT(AUTO) 3.83 MIL/uL (4.00-5.50); RED CELL DISTRIBUTION WIDTH 14.5 % (11.0-15.5)
[2024-10-18 22:37] LABS: INFLUENZA TYPE A Positive For Type A (NEGATIVE)
[2024-10-18 22:39] LABS: CREATININE 0.8 mg/dL (0.5-1.0); MAGNESIUM 1.8 mg/dL (1.80-2.40); POTASSIUM 3.2 mmol/L (3.5-5.1)
[2024-10-18] MEDS: Solu-medROL 125MG VIAL IVP ONE (22:42)
[2024-10-18] MEDS: acetaMINOPHEN 500 MG TABLET PO ONE (22:42)
[2024-10-18] MEDS: 0.9%NACL 1000ML 1,000 ML IV ONE (22:43)
[2024-10-18] MEDS: IpraTROPium/alBUTERol SULFATE 3 ML SOLUTION IH ONE (23:04)
[2024-10-18 23:06] VITALS: PULSE 77; RESP 19
[2024-10-18 23:08] LABS: B-TYPE NATRIURETIC PEPTIDE 43 pg/mL (0-100)
[2024-10-18] MEDS: guaiFENesin-DM 200/20MG 10ML PO ONE (23:25)
[2024-10-18] MEDS: PoTASSium BIcarbonate/CIT AC 25 MEQ TABLET.EFF PO ONE (23:25)
[2024-10-18] MEDS: OSELTAMIVIR PHOSPHATE 75 MG CAP PO ONE (23:25)
[2024-10-19] MEDS ORDERED: OSEL75 PO (00:01)
--- NOTE | 2024-10-19 00:06 | ERN ---
ED Note History of Present Illness Stated Complaint: C/O COUGH, CONGESTION, HEADACHE, Chief Complaint: Cough Time Seen by MD: 22:00 Time Seen by Midlevel: 22:00 Dictation: The Patient is a 79-year-old female with a history of hypertension, COPD, hyperl ipidemia who presents to the emergency department with complaints of nasal congestion, productive cough with green phlegm, headache and body aches, shortness of breath onset today. Patient denies any fevers, chest pain. Patient reports she was seen by her primary doctor today and was given Augmentin. No other complaints reported. Allergies: Coded Allergies: No Known Drug Allergies (Unverified Allergy, Unknown, 01/06/17) Home Meds Active Scripts Cephalexin Monohydrate (Keflex) 500 Mg Cap, 1 CAP PO TID for 10 Days, #30 CAP 0 Refills Prov:KARINA ESPARZA MD 04/28/24 Amoxicillin/Potassium Clav (Amox Tr-K Clv 500-125 mg Tab) 500 Mg-125 Mg Tablet, 1 EACH PO BID, #10 TAB 0 Refills Prov:FARHAN APPIAH 02/10/23 Reported Medications Pantoprazole Sodium (Pantoprazole Sodium) 40 Mg Tablet.dr, 40 MG PO AM, TAB 02/07/19 Montelukast Sodium (Montelukast Sodium) 10 Mg Tablet, 10 MG PO AM, TAB 02/07/19 Loratadine (Loratadine) 10 Mg Capsule, 10 MG PO DAILY, CAP 01/16/19 Albuterol Sulfate (Proair Hfa) 8.5 Gm Hfa.aer.ad, 8.5 GM IH Q4HPRN PRN for SHORTNESS OF BREATH 11/26/18 Ibuprofen (Ibuprofen 800 mg Tab) 800 Mg Tab, 800 MG PO Q8HPRN PRN for PAIN, TAB 11/14/18 Lisinopril (Lisinopril) 40 Mg Tablet, 40 MG PO DAILY, TAB 01/07/17 Past Medical History Past Medical History: Asthma, COPD, High Cholesterol, Hypertension Additional Past Medical Hx: Pre-DM Surgical History: Unknown Surgical History Other: BKR, LEFT HIP, EYE SURGERY Social History: Negative, Lives with family RN Note Reviewed/Agreed w/PFSH: Yes Review of System Dictation Constitutional: Negative for fever,chills, and weight loss positive for body aches Eyes: Negative for injury, pain,redness, and discharge ENT: Negative for injury,pain or swelling Cardiovascular: Negative for chest pain, palpitations, and edema Respiratory: Positive for shortness of breath, cough, and wheezing, Abdomen/GI: Negative for abdominal pain, nausea, vomiting, diarrhea, and constipation Back: Negative for injury and pain : Negative for injury, bleeding and discharge MS/Extremity: Negative for injury and deformity Skin: Negative for rash, and discoloration Neuro: Negative for weakness, numbness, tingling, and seizure positive for headache Psych: Negative for suicide ideation, homicidal ideation, and hallucinations Initial Vital Sign VS Vital Signs Date Time Temp Pulse Resp B/P (MAP) Pulse Ox O2 Delivery O2 Flow Rate FiO2 10/18/24 21:56 97.5 82 20 181/93 96 Room Air 10/18/24 22:32 0 21 Physical Exam Dictation Vital Signs reviewed General Appearance: Alert, oriented x 3, no acute distress, well developed, nourished. Head and Face: non-traumatic. Eyes: PERRL, pink conjunctivas, eyelid no trauma, anterior chamber with arcus senilis. Ears: Pinnas intact and no signs of trauma or erythema ear canals clear and no discharge TM no erythema Nose: No discharge, no bleeding. Oropharynx: Mouth normal, tongue pink. pharynx clear,no erythema, tonsils no exudates, no abscesses noted, mucous membrane moist Neck: Supple, non-tender, no thyromegaly, no masses, no JVD, no bruits Breast:Deferred Chest:No tenderness, no crepitus, no paradoxical movement, no retractions Lungs:Clear, well-ventilated, symmetric, no rales, mild wheezing, no rhonchi, no stridor, good breath sounds bilaterally Heart: Regular rate, regular rhythm, no murmur, no gallops Vascular: no peripheral edema, Abdomen: Soft, positive bowel sounds, nondistended, no guarding, nontender, no rebound, no masses no hepatomegaly, no splenomegaly, no Rizzo's sign, no hernias. Rectal: Deferred Genital: Deferred Neurological: Normal speech, motor function intact, sensory function intact , upper extremities equal in strength, lower extremities equal in strength. Musculoskeletal: Neck nontender, full range of motion, back nontender, full range of motion, Extremities: nontender, full range of motion Skin: Color pink, dry, no turgor, no rash, no lacerations, no abrasions, no contusions. Lymphatic: Deferred Results (Laboratory/Radiology) Laboratory/Radiology Laboratory Tests Test 10/18/24 21:57 10/18/24 22:19 Influenza Type A Antigen Positive For Type A Influenza Type B Antigen Negative For Type B SARS-CoV-2, RNA, NAAT NEGATIVE SARS CoV-2 Group A Streptococcus Rapid negative (NEGATIVE) White Blood Count 6.0 K/uL (4.8-10.8) Red Blood Count 3.83 MIL/uL (4.00-5.50) L Hemoglobin 11.9 g/dL (12.0-16.0) L Hematocrit 36.4 % (36-48) Mean Corpuscular Volume 95.0 fL (79-99) Mean Corpuscular Hemoglobin 31.1 pg (27.0-33.0) Mean Corpuscular Hemoglobin Concent 32.7 g/dL (32.0-36.0) Red Cell Distribution Width 14.5 % (11.0-15.5) Platelet Count 227 K/uL (130-400) Mean Platelet Volume 10.7 fL (7.5-10.5) H Immature Granulocyte % (Auto) 0.2 % (0-1) Neutrophils (%) (Auto) 46.8 % (40.0-77.0) Lymphocytes (%) (Auto) 39.8 % (21.0-51.0) Monocytes (%) (Auto) 9.2 % (3.0-13.0) Eosinophils (%) (Auto) 3.0 % (0.0-8.0) Basophils (%) (Auto) 1.0 % (0.0-5.0) Neutrophils # (Auto) 2.8 K/uL (1.8-7.7) Lymphocytes # (Auto) 2.4 K/uL (1.0-4.8) Monocytes # (Auto) 0.6 K/uL (0.1-1.0) Eosinophils # (Auto) 0.18 K/uL (0.00-0.70) Basophils # (Auto) 0.06 K/uL (0.00-0.20) Absolute Immature Granulocyte (auto 0.01 K/uL (0-1) Nucleated Red Blood Cells 0.0 % (0.0-0.19) Sodium Level 142 mmol/L (136-145) Potassium Level 3.2 mmol/L (3.5-5.1) L Chloride Level 106 mmol/L (101-111) Carbon Dioxide Level 26 mmol/L (21-32) Blood Urea Nitrogen 12 mg/dL (7-18) Creatinine 0.8 mg/dL (0.5-1.0) Glomerular Filtration Rate Calc 75 mL/min (>90) Random Glucose 115 mg/dL (70-105) H Total Calcium 8.7 mg/dL (8.5-10.1) Magnesium Level 1.80 mg/dL (1.80-2.40) Troponin I High Sensitivity 7 ng/L (4-50) B-Type Natriuretic Peptide 43 pg/mL (0-100) Labs Reviewed?: Yes EKG: (+) rhythm (Sinus rhythm) EKG Comment: Date:10/18/2024 Time:2256 Ventricular rate:68 OR interval:170 QRS duration:395 QT/QTc:422 EKG interpretation: Reviewed by ED Attending ED Course ED Course Orders Procedure Category Date Status Time Covid Rna Naat LAB 10/18/24 Complete 21:55 Influenza Type A & B, LAB 10/18/24 Complete Rapid 21:55 Rapid (Group A Strep) LAB 10/18/24 Complete 21:55 Cbc With Differential LAB 10/18/24 Complete 22:10 B-Type Natriuretic LAB 10/18/24 Complete Peptide 22:10 Chest 1vw RAD 10/18/24 Taken 22:10 12 Lead Ekg Tracing- EKG 10/18/24 Logged Technical 22:10 Magnesium LAB 10/18/24 Complete 22:10 Troponin I High LAB 10/18/24 Complete Sensitivity 22:10 Basic Metabolic Panel LAB 10/18/24 Complete 22:10 Ipratropium/Albuterol PHA 10/18/24 Complete Neb (Duoneb) 22:30 Methylprednisolone PHA 10/18/24 Complete Succ 125mg (Solu-Medr 22:30 Acetaminophen 500mg PHA 10/18/24 Complete Tab (Tylenol 500mg T 22:30 0.9%Nacl 1000ml (Ns PHA 10/18/24 In Process 1000ml) 22:30 Potassium Bicarb/Cit PHA 10/18/24 Complete Ac 25meq (K-Lyte Ta 23:30 Oseltamivir Phosphate PHA 10/18/24 Complete (Tamiflu) 23:30 Guaifenesin-Dm PHA 10/18/24 Complete 200/20mg 10ml 23:30 Current Medications Medications (Trade) Dose Ordered Sig/Rhiannon Route PRN Reason Start Time Stop Time Status Last Admin Dose Admin Acetaminophen (TYLenol 500MG TAB) 1,000 mg ONCE ONCE PO 10/18/24 22:30 10/18/24 22:31 DC 10/18/24 22:42 Albuterol (DUOneb) 1 UDVIAL ONCE ONCE IH 10/18/24 22:30 10/18/24 22:31 DC 10/18/24 23:04 Guaifenesin/ Dextromethorphan (RobiTUSSin DM 200/20MG 10ML) 5 ml ONCE ONCE PO 10/18/24 23:30 10/18/24 23:31 DC 10/18/24 23:25 Methylprednisolone Sodium Succinate (Solu-medROL 125MG) 125 mg ONCE ONCE IVP 10/18/24 22:30 10/18/24 22:31 DC 10/18/24 22:42 Oseltamivir Phosphate (Tamiflu) 75 mg ONCE ONCE PO 10/18/24 23:30 10/18/24 23:31 DC 10/18/24 23:25 Potassium Bicarbonate (K-Lyte Tablet Eff 25 Meq Tablet.eff) 25 meq ONCE ONCE PO 10/18/24 23:30 10/18/24 23:31 DC 10/18/24 23:25 Sodium Chloride 1,000 ml @ 125 mls/hr ONCE ONCE IV 10/18/24 22:30 10/19/24 06:29 10/18/24 22:43 Vital Signs Date Time Temp Pulse Resp B/P (MAP) Pulse Ox O2 Delivery O2 Flow Rate FiO2 10/18/24 23:06 77 19 10/18/24 22:32 80 18 132/69 97 Room Air* 0 21 10/18/24 21:56 97.5 82 20 181/93 96 Room Air Medical Decision Making MDM The Patient is a 79-year-old female with a history of hypertension, COPD, hy perlipidemia who presents to the emergency department with complaints of nasal congestion, productive cough with green phlegm, headache and body aches, shortness of breath onset today. Patient denies any fevers, chest pain. Patient reports she was seen by her primary doctor today and was given Augmentin. No other complaints reported. CBC showed no leukocytosis, mild normocytic anemia, chemistry showed mild hypokalemia, GFR of 70 follow up, negative troponin, negative BNP, chest x-ray showed no acute consolidation. Serology positive for influenza A EKG showed normal sinus rhythm. On physical exam patient presented with mild wheezing but in no acute distress. Wheezing improved after medication administration. Nonlabored respirations. patient with stable vital signs. Patient had electrolytes replaced. Received Tamiflu and we will be discharged with Tamiflu. Discharge planning discussed with patient who agrees to follow up with PCP. Differential diagnosis: Pneumonia, ACS, upper respiratory infection, COPD exacerbation Need for hospitalization: Patient does not meet criteria for hospitalization. There are no social concerns with this patient. DX & DISP Disposition: Discharge Departure Impression: Primary Impression: Influenza A Additional Impression: Hypokalemia Condition: Stable Scripts Oseltamivir Phosphate (Tamiflu) 75 Mg Cap 75 MG PO BID for 5 Days, #10 CAP Prov: HUANG AYALA 10/19/24 Additional Instructions: Yours labs were positive for influenza A. Take your medication as prescribed. continue taking your inhaler at home. Follow up with your PCP in 1-2 days. If you develop severe shortness of breath or symptoms worsen please return to ER. FOLLOW-UP WITH PRIMARY CARE PROVIDER IN 1 TO 2 DAYS. TAKE MEDICATIONS DIRECTED HERE IN THE EMERGENCY ROOM. OKAY TO CONTINUE HOME MEDICATIONS UNLESS OTHERWISE DISCUSSED DURING YOUR VISIT IN THE EMERGENCY ROOM TODAY. RETURN TO YOUR NEAREST EMERGENCY ROOM IF SYMPTOMS WORSEN OR IF THERE IS NO IMPROVEMENT. CALL 911 IF YOU NEED IMMEDIATE ASSISTANCE. TAKE TYLENOL OR MOTRIN [id number] NEEDED AND IF NO CONTRAINDICATIONS ARE PRESENT. INCREASE ORAL HYDRATION. A WOUND CULTURE OR URINE CULTURE WAS ORDERED HERE IN THE EMERGENCY ROOM DEPARTMENT PLEASE FOLLOW-UP WITH PRIMARY CARE PROVIDER AND ADVISE THEM TO GET REPEAT PORTS FROM OUR FACILITY. IF YOU HAD ANY ROSANA WRAP/SPLINTS THAT WERE APPLIED HERE, PLEASE DO NOT REMOVE THEM UNTIL YOU SEE YOUR PRIMARY CARE OR SPECIALTY. Referrals: FATOU CABELLO Jr., MD (PCP) Time of Disposition: 23:57 I have reviewed the case, and I agree with, Diagnosis and Plan HUANG AYALA Oct 19, 2024 00:06
--- NOTE | 2024-10-19 00:32 | HMCIMG ---
CHEST 1VW HISTORY: Chest pain COMPARISON: 02/08/2023 FINDINGS: A frontal projection of the chest was obtained. No acute pulmonary infiltrates is seen. The heart is borderline enlarged. Degenerative changes are seen. Aortic calcifications are seen. IMPRESSION: 1. No acute pulmonary infiltrate is seen.
[2024-10-19 01:11] VITALS: BP 140/64; PULSE 82; RESP 18; O2SAT 98
--- NOTE | 2024-10-19 06:23 | EKG ---
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
== END 2024-10-19 01:12 | disposition home or self-care (01) ==
LOC: EDH 21:52
DX: J10.1 Influenza due to other identified influenza virus with other respiratory manifestations (principal); E87.6 Hypokalemia; J44.9 Chronic obstructive pulmonary disease, unspecified; E78.00 Pure hypercholesterolemia, unspecified; I10 Essential (primary) hypertension; Z20.822 Contact with and (suspected) exposure to COVID-19; Z79.899 Other long term (current) drug therapy
CPT/HCPCS: 99285; 96374; 71045; 87635; 96361; 83735; 84484; 80048; 83880; 85025; 87880; 87804 ×2; 36415; 93005; 94640; J2919; J7030 ×2